=== PATIENT | male | born 1940 | race Caucasian/White ===

== ENCOUNTER → 2024-01-04 12:54 | Outpatient (REF) | payer MEDICARE, BC, SELFPAY | LOC: SDSPAT 12:54 | PROVIDERS: ATTENDING PHYSICIAN Internal Medicine Cardiovascular Disease; FAMILY PHYSICIAN Student in an Organized Health Care Education/Training Program | DX: Z01.818 Encounter for other preprocedural examination (principal); I48.19 Other persistent atrial fibrillation | CPT/HCPCS: 93005 ==

== ENCOUNTER → 2024-01-07 07:09 | Day surgery (SDC) | payer MEDICARE, BC, SELFPAY ==
[2024-01-04 13:05] VITALS: BMI 26.6
[2024-01-07 08:00] VITALS: BMI 24.8
[2024-01-07 08:05] LABS: INR 2.58; PT 27.6 Sec (11.4-14.6)
--- NOTE | 2024-01-07 17:28 | ITS.CL.CARDI ---
Medical Center Representative - Cardioversion
Cardioversion
Procedure Report:
Date of Procedure:01/07/24
Procedure: Cardioversion
Indication: Symptomatic atrial fibrillation
Performing Physician: Angélica Sethi DO [facility]
Anticoagulation: Coumadin. INR today 2.58
Technique: The patient was brought to the holding area. Signed informed consent was obtained. A time out was called and performed. The patient was anesthetized by the anesthesia service. Anticoagulation status was reviewed and appropriate. R2 pads
were placed anteriorly and posteriorly. A 200 J synchronized biphasic shock restored sinus rhythm. There were no complications.
Conclusion: Uncomplicated cardioversion from atrial fibrillation. Diltiazem CD reduced to 120 mg daily. Cardioversion procedure and plan discussed with his usual pt escort, Dr. Lofton.
Recommendation: Routine post cardioversion care. Continue superintendent terminal anticoagulation.
== END | disposition home or self-care (01) ==
LOC: CATH 07:09
PROVIDERS: Internal Medicine Cardiovascular Disease; ATTENDING PHYSICIAN Internal Medicine Cardiovascular Disease; FAMILY PHYSICIAN Student in an Organized Health Care Education/Training Program
DX: I48.19 Other persistent atrial fibrillation (principal); I25.10 Atherosclerotic heart disease of native coronary artery without angina pectoris; Z95.1 Presence of aortocoronary bypass graft; I11.0 Hypertensive heart disease with heart failure; I50.32 Chronic diastolic (congestive) heart failure; E78.5 Hyperlipidemia, unspecified; N40.0 Benign prostatic hyperplasia without lower urinary tract symptoms; K21.9 Gastro-esophageal reflux disease without esophagitis; Z87.891 Personal history of nicotine dependence; Z79.01 Long term (current) use of anticoagulants
CPT/HCPCS: 85610; 92960; 93005

== ENCOUNTER 2024-05-03 15:31 | Inpatient (IN) | payer MEDICARE, BC, SELFPAY ==
[2024-05-03] VITALS (13 sets, daily range): BP systolic 148–182; BP diastolic 80–126; PULSE 77–92; BMI 24.4; BMI 23.5
--- NOTE | 2024-05-03 09:32 | ED.GENMED ---
History of Present Illness
General
Chief Complaint: Male Genito-Urinary Symptoms
Time Seen by Provider: 05/03/24 09:32
History of Present Illness
History of Present Illness:
HPI: Patient presents with gross hematuria started 2 days ago. He is on Coumadin for history of A-fib and is on aspirin for CAD. He also reports rectal bleeding but he has had this in the past. He takes Coumadin 2.5 mg 6 days a week and then have
a dose on the other day. He is in no pain. He states that his INR yesterday was 2.7.
EXAM:
GENERAL: Well appearing in no distress
HEENT: Moist oral mucosa, hard of hearing, hearing aids present
CARDIOVASCULAR: No murmurs, normal heart rate, slightly irregular rhythm with some runs of irregularity, No chest wall tenderness
PULMONARY: No respiratory distress, breath sounds are clear and equal
ABDOMEN: Soft with no peritoneal signs, no tenderness, large ventral wall hernia which is soft, he has very dark brown to black loose stool which is briskly heme positive, there is no gross red blood
NEUROLOGIC: Excellent strength all extremities, no coordination deficits
PSYCHIATRIC: Appropriate mental status, normal insight and judgement
EXTREMITIES: Nontender, no edema, moves all extremities equally
SKIN: No rash, no lesions
TIME OF INITIAL ENCOUNTER: 9:45 AM
NUMBER AND COMPLEXITY OF PROBLEMS ADDRESSED AT THE ENCOUNTER
� Chronic conditions affecting care: Atrial fibrillation on Coumadin, high blood pressure
� Acute Exacerbation and/or Progression of Chronic Illness: This is an acute problem but is had a similar episode in the past
� Differential Diagnosis includes: Bleeding from bladder, upper/lower GI bleed
AMOUNT AND/OR COMPLEXITY OF DATA TO BE REVIEWED AND ANALYZED
� I performed an independent evaluation of and my interpretation is:
EKG: A-fib 76, no acute ST
CT: CTA shows no contrast extravasation however mass (likely clot) is seen in bladder
X-rays:
Laboratory Studies: White count 10.3, hemoglobin 13.1, BUN is not elevated. INR 2.76.
Other:
� Review of other/old records: I reviewed old records. The patient was hospitalized in February 2023 with [facility]. Records also indicate that the patient had an embolization of an actively extravasating arterial branch vessel to the
descending colon in 2014.
� Clinical information was obtained by an independent historian: I spoke to kathyughter at bedside
� Prescriptions/Medications Considered but not given: Considered antibiotics for the possible of UTI; consider Kcentra however the patient's bleeding is relatively controlled currently.
� Further testing considered but not performed:
RISK OF COMPLICATIONS AND/OR MORBIDITY OR MORTALITY OF PATIENT MANAGEMENT
� Social determinants of health affecting care: Lives at home
� Discussion with other providers:
� Escalation of care including admission/observation vs risk of discharge considered: The patient has grossly heme positive very dark brown to black stool however his BUN is not elevated and his hemoglobin is stable. He has been
hypertensive here. Urine is grossly red/slightly cloudy. Urinalysis is positive for nitrates and blood. CTA shows no contrast extravasation. However given patient's advanced age on Coumadin with both hematuria and GI bleed, I recommend he stay
for further observation.
Past History
Past History
ED Past Medical History: Arrthythmia, CAD, Cancer, GERD, HTN, Hypercholesterolemia, Valvular disease and Other (BPH)
ED Past Surgical History: Urological and Other
Social History
Tobacco: Former smoker
Alcohol: None
Drug: None
Personal:
Living: alone
Employment: Employed
Family History
Family History: Other
Phy Exam
Physical Exam
Physical Exam:
See HPI
Course
Orders/Labs/Results
Orders:
Orders
05/03/24 09:48
Complete Blood Count/With Diff Urgent
Comprehensive Metabolic Panel Urgent
Prothrombin Time Urgent
05/03/24 09:54
Pantoprazole [Protonix IV] 40 mg IV NOW STA
05/03/24 09:57
Electrocardiogram (*1) Urgent
Reason for Study: Atrial Fibrillation
EKG- Treatment ONCE
05/03/24 09:58
CT Angio Abd/Pelvis w/wo IV [CT Abd/pelvis Angio W/wo Iv] Urgent
Comment:
Reason For Exam: recurrent rectal bleeding; h/o desc colon emboliza
05/03/24 09:59
Add On- LAB Urgent
Tests Added?: t&s
05/03/24 10:04
Type+Screen Urgent
05/03/24 10:39
Urinalysis Reflex To Culture Urgent
Date Specimen was Collected: 05/03/24
Time Specimen was Collected: 10:36
Urine Microscopic Reflex Cult Urgent
Urine Culture Urgent
LAZARO Source: U
Specimen Description:
Date Specimen was Collected: 05/03/24
Time Specimen was Collected: 10:36
Abnormal Lab Results
05/03/24 05/03/24
09:48 10:39
RBC 4.30 L 10^6/uL
(4.70-6.10)
Hct 38.1 L %
(39.0-52.0)
Absolute Neuts (auto) 9.0 H 10^3/uL
(1.4-6.5)
Absolute Lymphs (auto) 0.7 L 10^3/uL
(1.2-3.4)
Neutrophils % 87.9 H %
(42.2-75.2)
Lymphocytes % 6.8 L %
(20.5-51.1)
PT 29.6 H Sec
(11.4-14.6)
Glucose 141 H mg/dl
(70-99)
Urine Ketones Trace A
(Negative)
Ur Occult Blood Reflex 4+ A
(Negative)
Urine Nitrite (Reflex) Positive A
(Negative)
Leukocyte Esterase Rfl 1+ A
(Negative)
Urine RBC >100 A /HPF
(0-2)
Urine WBC (Reflex) 11-15 A /HPF
(0-5)
Urine Bacteria (Reflex) Moderate A
(Negative)
Urine Albumin (Reflex) 2+ A
(Neg - Trace)
05/03/24 09:48
05/03/24 09:48
Vital Signs
Initial and Last Documented VS:
Initial Vital Signs
Temp Pulse Resp BP Pulse Ox
98.3 F 88 18 173/93 97
05/03/24 08:47 05/03/24 08:47 05/03/24 08:47 05/03/24 08:47 05/03/24 08:47
Last Documented Vital Signs
Temp Pulse Resp BP Pulse Ox
98.3 F 75 18 148/81 97
05/03/24 08:47 05/03/24 13:30 05/03/24 13:30 05/03/24 13:00 05/03/24 13:30
*Critical Care Note
Total Time (30-74mins, 75-104mins- exclusive of procedures): Not Applicable
ED Attending Note
-
Portions of this chart may have been created with voice recognition software.� Occasional wrong word or��sound alike� substitutions may have occurred due to the inherent limitations of voice recognition software.
Discharge Plan
Departure
Patient Disposition: Admit
Date of Disposition: 05/03/24
Time of Disposition: 13:37
Presentation/result/management discussed w/ accepting MD/DO: Hospitalist
Discharge Problem:
Acute GI bleeding, Hematuria
Prescriptions:
No Action
dutasteride 0.5 MG capsule
0.5 mg PO DAILY
ferrous sulfate [FeroSul] 325 MG tablet
650 mg PO DAILY
Fiber Gummies 2 GM tablet,chewable
4 gm PO DAILY
multivitamin with folic acid [Tab-A-Roverto] 1 TABLET tablet
1 tab PO DAILY
pantoprazole 40 MG tablet,delayed release (DR/EC)
40 mg PO DAILY Qty: 30 0RF
warfarin 2.5 mg Tablet
2.5 mg PO SUMOTUWEFRSA
warfarin 2.5 mg Tablet
1.25 mg PO TH
losartan 100 mg Tablet
100 mg PO DAILY
ezetimibe 10 mg Tablet
10 mg PO DAILY
diltiazem HCl 120 mg capsule,extended release 24hr
120 mg PO DAILY Qty: 90 3RF
Referrals:
Nora Mendez MD [Family Provider] -
Interventions
Interventions:
*Risk Screen - Suicide Last Done: 05/03/24 08:47
*General Assessment Last Done: 05/03/24 08:47
*Neglect/Abuse Screening Last Done: 05/03/24 08:47
ED- Fall Risk Assessment Last Done: 05/03/24 09:40
*ED COVID-19 Vaccine History Last Done: 05/03/24 08:47
ED-Male Genitourinary Assessment Last Done: 05/03/24 09:40
Discharge Date and Time
Print Language: TELUGU
[2024-05-03] MEDS: PROTONIX IV 40 MG IV ×2 (09:58→20:46)
[2024-05-03 10:10] LABS: INR 2.76; PT 29.6 Sec (11.4-14.6)
[2024-05-03 10:12] LABS: % Basophils 0.5 % (0-2); % Eosinophils 0.5 % (0-6); % Immature Granulocytes 0.4 % (0-0.5); % Lymphocytes 6.8 % (20.5-51.1); % Monocytes 3.9 % (1.7-9.3); % Neutrophils 87.9 % (42.2-75.2); Absolute Basophils 0.1 10^3/uL (0-0.2); Absolute Eosinophils 0.1 10^3/uL (0-0.7); Absolute Lymphocytes 0.7 10^3/uL (1.2-3.4); Absolute Monocytes 0.4 10^3/uL (0.1-0.6); Hematocrit 38.1 % (39.0-52.0); Hemoglobin 13.1 g/dL (13.0-18.0); Mean Corp Hgb Conc. 34.4 g/dL (33.0-37.0); Mean Corpuscular Hgb 30.5 pg (27.0-31.0); Mean Corpuscular Volume 88.6 fL (80.0-94.0); Mean Platelet Volume 10.1 fL (7.4-10.4); Nucleated Red Blood Cells % 0 % (-); Platelet Count 346 10^3/uL (130-400); White Blood Cell Count 10.3 10^3/uL (4.8-10.8)
[2024-05-03 10:19] LABS: ALT (SGPT) 18 U/L (0-50); AST (SGOT) 29 U/L (17-59); Albumin 4.3 g/dl (3.5-5.0); Alkaline Phosphatase 109 U/L (38-126); Blood Urea Nitrogen 11 mg/dl (9-20); Calcium 9.6 mg/dl (8.4-10.2); Carbon Dioxide 27 mmol/L (22-30); Chloride 104 mmol/L (98-107); Estimated Creatinine Clearance 61 ml/min; Glucose 141 mg/dl (70-99); Sodium 137 mmol/L (135-145); Total Protein 7.6 g/dl (6.3-8.2); eGFR > 60.00
[2024-05-03 10:34] LABS: Potassium 4.1 mmol/L (3.5-5.1)
[2024-05-03 11:09] LABS: Urine Albumin 2+ (Neg - Trace); Urine Bilirubin Negative (Negative); Urine Character Slightly Cloudy (Clear); Urine Color Red; Urine Glucose Negative (Negative); Urine Ketone Trace (Negative); Urine Leukocyte 1+ (Negative); Urine Nitrite Positive (Negative); Urine Occult Blood 4+ (Negative); Urine Specific Gravity 1.005 (<1.030); Urine Urobilinogen Negative (Neg - 1+)
[2024-05-03 11:39] LABS: Urine Red Blood Cell >100 /HPF (0-2)
[2024-05-03 11:40] LABS: Urine Bacteria Moderate (Negative)
--- NOTE | 2024-05-03 14:33 | HPS.HSE ---
Family Physician
-
Family Physician: Nora Mendez MD
Chief Complaint
-
melena
bloody urine
History of Present Illness
83-year-old with past medical history for A-fib, coronary artery disease, GERD, hypertension, hyperlipidemia, BPH presented to us with gross hematuria started 2 days ago and also rectal bleeding since last night. He is on Coumadin for past 7 years.
Patient denied any abdominal pain, nausea, vomiting, diarrhea. Patient denied any headache, dizziness, syncopal episode. Patient denied chest pain or short of breath.
Stool positive in ER. CT with impression of irregularly-shaped increased attenuation masslike structure within the urinary bladder measuring up to 5 cm in diameter. As this is new as compared with the prior examination and shows no definitive
enhancement, most likely related to blood clot. Bladder neoplasm is considered less likely.
Patient received Protonix in ER. Admitting for further management
Medical History
Past Medical History
Past Medical History: Reports Other
Additional Past Medical History:
1. Coronary artery disease status post JOHANSEN to distal LAD 2014 with
residual OM3 disease, medically treated.
2. 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
3. Hypertension.
4. Hyperlipidemia.
5. HFpEF.
6. Iron deficiency anemia.
7. BPH.
8. Gastroesophageal reflux disease.
9. Lower gastrointestinal bleed status post mesenteric coil
embolization.
Past Surgical History: Reports Other
Additional Past Surgical History:
Lower GI bleed, TURP, mesenteric
coil embolization CABG, JOHANSEN to LAD with mitral valve repair and
maze 2014, cardioversion x1, Achilles tendon rupture repair.
Social History
Tobacco: Non-smoker
Alcohol: None
Drug: None
Living: With Family
Family History
Family History: Not pertinent
Allergies / Home Medications
Allergies reflects when Allergies were last updated in [facility] [employer] [facility].
Home Medications with original date entered in [employer] [facility]
Allergy/Medication List:
Allergies
Allergy/AdvReac Type Severity Reaction Status Date / Time
amoxicillin Allergy Swelling Verified 05/03/24 08:47
pollen extracts Allergy congestion Verified 05/03/24 08:47
Home Medications
dutasteride 0.5 mg capsule 0.5 mg PO DAILY BPH 03/18/17
ferrous sulfate 325 mg (65 mg iron) tablet (FeroSul) 650 mg PO DAILY Supplement 10/25/19
inulin 2 gram chewable tablet (Fiber Gummies) 4 gm PO DAILY Diabetes 10/25/19
pantoprazole 40 mg tablet,delayed release 40 mg PO DAILY #30 tabs 03/24/20
warfarin 2.5 mg tablet 2.5 mg PO SUMOTUTHFRSA@1700 Blood Clot Prevention/Tx 03/01/23
ezetimibe 10 mg tablet 10 mg PO DAILY 12/30/23
losartan 100 mg tablet 100 mg PO DAILY 12/30/23
warfarin 2.5 mg tablet 1.25 mg PO WE@1700 12/30/23
ipratropium bromide 21 mcg (0.03 %) nasal spray 2 spray intranasal DAILYPRN PRN nasal drip 05/03/24
therapeutic multivitamin 2 tab PO DAILY 05/03/24
Review of Systems
-
Constitutional: Reports No Symptoms
EENT: Reports No Symptoms
Respiratory: Reports No Symptoms
Cardiac: Reports No Symptoms
Abdomen/GI: Reports Bloody Stools and Black Stools
: Reports Other (Hematuria)
Musculoskeletal: Reports No Symptoms
Skin: Reports No Symptoms
Neurological: Reports No Symptoms
Endocrine: Reports No Symptoms
Hematologic/Lymphatic: Reports No Symptoms
Psych: Reports No Symptoms
Physical Exam
Vital Signs
Vital Signs
Temp Pulse Resp BP Pulse Ox
98.3 F 75 18 148/81 97
05/03/24 08:47 05/03/24 13:30 05/03/24 13:30 05/03/24 13:00 05/03/24 13:30
Physical Exam
General: Well Developed, Well Nourished and No Apparent Distress
HEENT: NormoCephalic, Moist mucous membranes and Atraumatic
Respiratory: Clear
Cardiac: S1/S2 and Regular Rhythm; No Murmur or Rub
GI: Soft, Non Tender, Non Distended and Normal Bowel Sounds; No Organomegaly
Rectal: Deferred by Provider
Musculoskeletal: No Clubbing, No Cyanosis and No Edema
Skin: No Rash
Neuro: AO x 3 and Nonfocal/grossly intact
Psych: Calm
Laboratory Results
-
05/03/24 09:48
05/03/24 09:48
Laboratory Results
PT 29.6 Sec (11.4-14.6) H 05/03/24 09:48
INR 2.76 05/03/24 09:48
Total Bilirubin 1.0 mg/dl (0.2-1.3) 05/03/24 09:48
AST 29 U/L (17-59) 05/03/24 09:48
ALT 18 U/L (0-50) 05/03/24 09:48
Alkaline Phosphatase 109 U/L (38-126) 05/03/24 09:48
Data Reviewed
-
CT Scan: Report Reviewed by me
Lab Data: Labs Reviewed by me
Impression/Plan
-
# Hematuria /urinary tract infection
-Urine with blood
-CT o active gastrointestinal hemorrhage is identified. Irregularly-shaped increased attenuation masslike structure within the urinary bladder measuring up to 5 cm in diameter. As this is new as compared with the prior examination and shows no
definitive enhancement, most likely related to blood clot. Bladder neoplasm is considered less likely. Advanced aortic atherosclerotic changes as seen prior. 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 Extensive colonic diverticulosis
without diverticulitis. Cholelithiasis.
-iv ceftriaxone continued
-urine culture pending
-urology consulted
# Melena/GI bleed
-#hxt of Lower gastrointestinal bleed status post mesenteric coil embolization.
-Heme positive stool
-Hemoglobin 13.1
-Clear liquid diet
-Trend hemoglobin
-IV PPI
-GI consult
# hxt of CAD
#A fib likely permanent
-Hold Coumadin
-INR therapeutic
-EKg with atrial fib
# BPH
-dutasteride continued
# Hyperlipidemia
-Zetia continued
# Iron deficiency anemia
-ferrous sulfate continued
#HTN
-continue [employer] losartan with hold parameters
DVT PPx - INR currently therapeutic
# CODE STATUS
-Full code
--- NOTE | 2024-05-03 15:11 | CON.GI ---
Consultation
-
Date/Time Consultation Requested: 05/03/24
Date/Time Consultation Performed: 05/03/24 @ 15:30
Requesting Provider: Dr. Glover
Performing Provider: RIGOBERTO Villegas; Dr. Jaja Conklin
Reason for Consultation: melena, heme +
Medical History
Chief Complaint / HPI
Chief Complaint: melena, bloody urine
History of Present Illness:
The patient is an 83-year-old male with a past medical history significant for atrial fibrillation on Coumadin, CAD with prior stenting and CABG in 2014, mitral valve repair 2014, GERD, hypertension, hyperlipidemia, BPH, iron deficiency anemia on
oral iron, history of GI bleed status post mesenteric coil embolization, suspected diverticular bleeding (Cscope x2 in 2019 with negative CTA), chronic CHF, who presented to the emergency room with complaints of melena and bloody urine. We are
being asked to evaluate for concern for GI bleed with chronic anticoagulation on Coumadin. The patient reports that since Wednesday he had been having clots and a pink tinged urine. He notes having hematuria in the past and it appears he has had
several urologic interventions in the past. He reports that last night he awoke in the middle of the night to have a bowel movement and noticed it was black stool. He describes it as pasty, the consistency of the oatmeal. He notes that he does
have blood mixed in as well although he is not sure if this is from his urine given he urinates at the same time. He does take oral iron but notes that his stool was previously brown prior to today. He does not suffer from constipation nor does he
have diarrhea at baseline. He does take pantoprazole 40 mg daily and is compliant with this. He reports he had a significant mount of weight loss over the fall but he has steadily been gaining some weight. He had seen Dr. Palomo in the office in
July due to his weight loss and abdominal fullness and did have an endoscopy in August which showed no concerning findings. Biopsies of the esophagus did reveal Meneses's esophagus and he was advised to continue on PPI therapy. He otherwise
denies any nausea, vomiting, heartburn, abdominal pain, loss of appetite, constipation, early satiety, chest pain, shortness of breath, fevers, or chills. He denies any new medications. He denies any recent antibiotics or steroids. He denies any
family history of colon cancer or other GI cancers or disorders. His last dose of warfarin was last night with 2.5 mg. He denies use of NSAIDs. Upon review of previous records he had been hospitalized in 2019 at that time with hematochezia and
underwent colonoscopy on 03/11 in which a 10 mm polyp was removed. There was also blood seen in the sigmoid colon and suspect to be diverticular bleeding. He had a recurrent admission shortly after that and underwent repeat colonoscopy on 03/22/2020
in which she had blood throughout his entire colon. He had a CTA done at that time which was negative for active bleeding. He was admitted again last year again with concern for bleeding suspected again to possibly be diverticular. It was only
small amount and his hemoglobin remained stable, and he was discharged home. Upon ER evaluation today, routine labs in the ER showed a WBC of 10.3, hemoglobin 13.1, platelets 346,000, INR 2.76, with a normal CMP. He is pending urology evaluation
for possible CBI. CTA of the abdomen and pelvis was obtained which was negative for acute GI bleed, but did show extensive diverticular disease, and an irregularly shaped increased attenuation masslike structure within the urinary bladder measuring
up to 5 cm, with other nonurgent findings as noted below. He was started on antibiotics for concern for possible UTI given his urinary frequency. Urine culture is pending. We are following for possible need for EGD.
Past Medical History
Past Medical History: Arrhythmias (A-fib on Coumadin), CAD (Status post CABG), CHF, GERD, HTN, Hypercholesterolemia and Other (BPH, iron deficiency anemia on chronic oral iron, history of GI bleed suspect to be diverticular status post coil
embolization, recurrent hematuria requiring cystoscopy)
Past Surgical History: Cardiac (CABG, mitral valve repair), Urological (TURP) and Other (mesenteric coil embolization)
Social History
Tobacco: Non-Smoker
Alcohol: None
Drug: None
Living: With Family
Family History
Family History: Reviewed & Not Pertinent
Allergies / Home Medications
Allergy/AdvReac Type Severity Reaction Status Date / Time
amoxicillin Allergy Swelling Verified 05/03/24 08:47
pollen extracts Allergy congestion Verified 05/03/24 08:47
�Medication �Instructions �Recorded
dutasteride 0.5 mg capsule 0.5 mg PO DAILY BPH 03/18/17
ferrous sulfate 325 mg (65 mg 650 mg PO DAILY Supplement 10/25/19
iron) tablet (FeroSul)
inulin 2 gram chewable tablet 4 gm PO DAILY Diabetes 10/25/19
(Fiber Gummies)
pantoprazole 40 mg tablet,delayed 40 mg PO DAILY #30 tabs 03/24/20
release
warfarin 2.5 mg tablet 2.5 mg PO SUMOTUTHFRSA@1700 Blood 03/01/23
Clot Prevention/Tx
ezetimibe 10 mg tablet 10 mg PO DAILY 12/30/23
losartan 100 mg tablet 100 mg PO DAILY 12/30/23
warfarin 2.5 mg tablet 1.25 mg PO WE@1700 12/30/23
ipratropium bromide 21 mcg (0.03 2 spray intranasal DAILYPRN PRN 05/03/24
%) nasal spray nasal drip
therapeutic multivitamin 2 tab PO DAILY 05/03/24
Review of Systems
-
History Source: Patient
Constitutional: Reports No Symptoms
EENT: Reports No Symptoms
Respiratory: Reports No Symptoms
Cardiac: Reports No Symptoms
Abdomen/GI: Reports Black Stools
: Reports Frequency and Bleeding
Musculoskeletal: Reports No Symptoms
Skin: Reports No Symptoms
Neurological: Reports No Symptoms
Vital Signs
Temp Pulse Resp BP Pulse Ox
98.3 F 75 18 148/81 97
05/03/24 08:47 05/03/24 13:30 05/03/24 13:30 05/03/24 13:00 05/03/24 13:30
Physical Exam
Exam
General: Well Developed, No Apparent Distress, Comfortable and Other (elderly appearing male )
HEENT: Normocephalic, Anicteric and Atraumatic
Respiratory: Clear
Cardiac: S1/S2 and Regular Rhythm
GI: Soft, Non Distended, Normal Bowel Sounds and Tender (mildly distended but soft)
Rectal: Hem Positive (per ER records)
Musculoskeletal: No Edema
Skin: Warm and Dry
Neuro: Awake, Alert and Oriented
Psych: Calm
Results
WBC 10.3 10^3/uL (4.8-10.8) 05/03/24 09:48
Hgb 13.1 g/dL (13.0-18.0) 05/03/24 09:48
Hct 38.1 % (39.0-52.0) L 05/03/24 09:48
MCV 88.6 fL (80.0-94.0) 05/03/24 09:48
Plt Count 346 10^3/uL (130-400) 05/03/24 09:48
Absolute Neuts (auto) 9.0 10^3/uL (1.4-6.5) H 05/03/24 09:48
PT 29.6 Sec (11.4-14.6) H 05/03/24 09:48
INR 2.76 05/03/24 09:48
Sodium 137 mmol/L (135-145) 05/03/24 09:48
Potassium 4.1 mmol/L (3.5-5.1) 05/03/24 09:48
Chloride 104 mmol/L (98-107) 05/03/24 09:48
Carbon Dioxide 27 mmol/L (22-30) 05/03/24 09:48
BUN 11 mg/dl (9-20) 05/03/24 09:48
Creatinine 0.9 mg/dL (0.7-1.3) 05/03/24 09:48
Calcium 9.6 mg/dl (8.4-10.2) 05/03/24 09:48
Total Bilirubin 1.0 mg/dl (0.2-1.3) 05/03/24 09:48
AST 29 U/L (17-59) 05/03/24 09:48
ALT 18 U/L (0-50) 05/03/24 09:48
Alkaline Phosphatase 109 U/L (38-126) 05/03/24 09:48
Diagnostic Image Results:
05/03/24 CTA abdomen and pelvis with and without contrast:
1. No active gastrointestinal hemorrhage is identified.
2. Irregularly-shaped increased attenuation masslike structure within the urinary bladder measuring up to 5 cm in diameter. As this is new as compared with the prior examination and shows no definitive enhancement, most likely related to blood
clot. Bladder neoplasm is considered less likely.
3. Advanced aortic atherosclerotic changes
4. Extensive colonic diverticulosis without diverticulitis.
5. Cholelithiasis.
Prior GI Procedures:
08/26/2023 EGD: Normal esophagus, Z-line irregular, biopsies consistent with Meneses's esophagus. Widely patent nonobstructing and mild Schatzki ring. 3 cm hiatal hernia. A few gastric polyps biopsied consistent with fundic gland polyps.
Granular gastric mucosa with unrevealing biopsies. Normal examined duodenum, negative for celiac.
Colonoscopy: March 2020, Dr. Castillo, adequate prep for purpose of bleeding, enlarged prostate on exam, left-sided diverticulosis with blood throughout the entire colon but more red and fresh in the left colon. No source found after 2 L of lavage.
Colonoscopy 03/2020: 10 mm pedunculated polyp, descending colon clip placed, diverticulosis
2014, status post CTA with embolization of the descending colon artery
Colonoscopy in 2013: diverticulosis, external hemorrhoids
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
that biopsy report.
Colonoscopy in 2011: diverticulosis, three polyps removed (4-5 mm), per biopsy report: adenomatous and benign serrated polyp with features suspicious but not diagnostic of sessile serrated adenoma
Assessment / Plan
-
The patient is an 83-year-old male with a past medical history significant for atrial fibrillation on Coumadin, CAD with prior stenting and CABG in 2014, mitral valve repair 2014, GERD, hypertension, hyperlipidemia, BPH, iron deficiency anemia on
oral iron, history of GI bleed status post mesenteric coil embolization, suspected diverticular bleeding (Cscope x2 in 2019 with negative CTA), chronic CHF, hematuria with cystoscopy and TURBPT with nodular hyperplasia of bladder lesion (2016,
2019), who presented to the emergency room with complaints of melena and bloody urine. We are being asked to evaluate for concern for GI bleed with chronic anticoagulation on Coumadin. He has history of GI bleeding, previously suspected to be
diverticular given hematochezia although source unable to be identified in the past in 2019. Had recurrent bleeding in 2022 but this resolved. He had an EGD over the fall with Dr. Palomo due to weight loss and abdominal fullness but no concerning
findings were seen. He is on chronic PPI for Meneses's esophagus. He is on chronic warfarin for history of A-fib it appears he has had intermittent urological bleeding, in the past requiring cystoscopy with TURBT d/t recurrent nodular hyperplasia
of bladder lesion in 2016 and again in October 2019. Currently he is reporting melena although with a stable hemoglobin of 13.1. He has no upper GI symptoms. His INR is 2.76. CTA did not show any active GI bleeding but did show a 5 cm bladder
mass that is thought to be secondary to a blood clot. He has been having pink/punch tinged urine along with clots as well. His BUN is normal at 11. He denies use of NSAIDs. His last dose of warfarin was last evening with 2.5 mg. He was started
on antibiotics for possible UTI.
Problem list:
-Melena, no active GI bleed on CTA
-Hematuria with clots
-CTA showing a 5 cm bladder mass, possibly clot
-History of GI bleed with coil embolization, suspected diverticular with extensive diverticulosis on prior imaging and colonoscopy in 2019
-Meneses's esophagus on chronic PPI
-History of recurrent hematuria s/p cystoscopy and TURBT with nodular hyperplasia of bladder
-History of A-fib on chronic anticoagulation with Coumadin
-chronic SHAKEEL on oral iron
-abnormal UA, concern for UTI
Other pertinent medical history:
-CAD with history of CABG and mitral valve repair in 2014
-GERD
-HTN
-HLD
-BPH
Recommendations:
-Etiology of melena possibly due to upper GI blood loss such as AVMs versus peptic ulcer versus other. Also consider higher up diverticular bleeding although would expect maroon stool in this case. He is also on oral iron which can affect stool
color.
-----CTA is negative for active GI bleed but did show 5cm bladder mass, possibly clot.
-Given his stable hemoglobin and hemodynamic stability, would continue to monitor stool output and for gross signs of bleeding
-Consider eventual EGD pending his clinical course, but no scope for now given his Warfarin and elevated INR. Discussed with Dr. Conklin
-Trend INR. Coumadin on hold
-Will place on twice daily PPI for now
-Okay for clear liquid diet
-Trend H&H
-I advised him if he has a bowel movement to allow the nurses to evaluate his stool color
-Pending urologic evaluation, per hospitalist for placement of CBI
-To consider discussion with cardiology regarding his anticoagulation and/or alternatives going forward given his recurrent urologic and GI bleeding.
-Management for UTI per primary team
-Further management pending above
Data Reviewed
-
CT Scan: Report Reviewed by me and Discussed with Physician
Old Records: Reviewed
-
-
Thank you for consultation and allowing me to participate in the patient's care. Please call the regional transportation manager GI physician during the after hours with any questions or concerns.
--- NOTE | 2024-05-03 15:30 | W.PN.UPDATE ---
Update Note
Progress Note Update
I saw and examined the patient.
The BUSINESS CONTROL MANAGER or PA's note was reviewed and I agree with the note.
Comment: This note is in addition to BUSINESS CONTROL MANAGER/PA note
83-year-old male with past medical history of A-fib, CAD, BPH, hyperlipidemia, iron deficiency anemia, hypertension, history of GI bleed came to the hospital with hematuria and GI bleed. Likely will need EGD. consult GI and urology. Clears for
now. Hold Coumadin. Denies any NSAID use. Follow-up INR. Will need Timmons with CBI. Follow urine culture. start antibiotic
General: Well Developed, Well Nourished and No Apparent Distress
HEENT: NormoCephalic, Moist mucous membranes and Atraumatic
Respiratory: Clear
Cardiac: S1/S2 and Regular Rhythm; No Murmur or Rub
GI: Soft, Non Tender, Non Distended and Normal Bowel Sounds; No Organomegaly
Rectal: Deferred by Provider
Musculoskeletal: No Clubbing, No Cyanosis and No Edema
Skin: No Rash
Neuro: AO x 3 and Nonfocal/grossly intact
Psych: Calm
I spent a total of 76 minutes with the patient or on the floor. More than 50% of this time involved counseling and coordination of care.
[2024-05-03] MEDS: STERILE WATER FOR INJECTION 10 ML IV (15:34)
[2024-05-03] MEDS: ROCEPHIN 1000 MG IV (15:34)
[2024-05-03 17:11] LABS: Hemoglobin 13.3 g/dL (13.0-18.0)
--- NOTE | 2024-05-03 17:42 | PTCARENOTE ---
pt presents from ED via stretcher. pt is AAO*3, Vss, room air. pt denies any pain, dizziness, N/V. pt is independent. on clears. pt had a bloody BMs with clots. GI notified. pt c/o difficulty urinating. pt oriented to the room. call stephen within the
reach. plan of care ongoing.
--- NOTE | 2024-05-03 19:37 | PTCARENOTE ---
pt with difficulty urinating. As per Urology, inserted 3 way vivar, Hand irrigated 300 cc with clots. CBI started.
[2024-05-03] MEDS: NSS (PRESERVATIVE FREE) 10 ML IV (20:47)
[2024-05-04] VITALS (9 sets, daily range): BP systolic 111–143; BP diastolic 71–89; PULSE 86–102; O2SAT 97; BMI 23.5
[2024-05-04 01:28] LABS: Hematocrit 35.5 % (39.0-52.0); Hemoglobin 12.7 g/dL (13.0-18.0)
[2024-05-04] MEDS: PROTONIX IV 40 MG IV (07:31)
[2024-05-04] MEDS: ZETIA 10 MG PO (07:32)
[2024-05-04] MEDS: COZAAR 100 MG PO (07:32)
[2024-05-04] MEDS: PROSCAR 5 MG PO (07:32)
[2024-05-04] MEDS: FEOSOL 650 MG PO (07:33)
[2024-05-04] MEDS: NSS (PRESERVATIVE FREE) 10 ML IV (07:36)
[2024-05-04 08:00] LABS: Red Blood Cell Count 4.11 10^6/uL (4.70-6.10); White Blood Cell Count 11.7 10^3/uL (4.8-10.8)
[2024-05-04 08:01] LABS: Hematocrit 36.1 % (39.0-52.0); Hemoglobin 12.5 g/dL (13.0-18.0); Mean Corp Hgb Conc. 34.6 g/dL (33.0-37.0); Mean Corpuscular Hgb 30.4 pg (27.0-31.0); Mean Corpuscular Volume 87.8 fL (80.0-94.0); Mean Platelet Volume 9.9 fL (7.4-10.4); Platelet Count 333 10^3/uL (130-400); Red Cell Dist. Width 13.1 % (11.5-14.5)
[2024-05-04 08:15] LABS: INR 2.51; PT 27.4 Sec (11.4-14.6)
[2024-05-04 08:32] LABS: Blood Urea Nitrogen 12 mg/dl (9-20); Calcium 9.4 mg/dl (8.4-10.2); Carbon Dioxide 25 mmol/L (22-30); Chloride 104 mmol/L (98-107); Estimated Creatinine Clearance 55 ml/min; Glucose 129 mg/dl (70-99); Potassium 3.9 mmol/L (3.5-5.1); Sodium 136 mmol/L (135-145); eGFR > 60.00
--- NOTE | 2024-05-04 09:15 | W.PN.URO.CBU ---
Today's Communication / Plan
-
rmov folet=y eplace if no void or dousetnion or pain
Assessment / Plan
-
hematuria fron[m anticogulabts no bladder mass on previos ct scan but bph will remove vivar as i hand irrigated and thre wa no clots However pt could hav eorganized clot and if cannot void may shyla scysto under anestheis to evacuate clot
Diagnosis
-
Date of Service: May 04, 2024
-
Patient Diagnosis:hematuria and gi bleed on warfarin Hematuria x 2 days coul not void lst pm and vivar placd and clots irigated Clear today H/p\\o bph on dutasteride
Post Op Day:
Subjective
-
no hematuria but gi bled continued
Objective
-
Vital Signs
Temp Pulse Resp BP Pulse Ox
97.8 F 88 18 137/89 95
05/04/24 08:31 05/04/24 08:31 05/04/24 08:31 05/04/24 07:32 05/04/24 08:31
Intake and Output
05/03/24 05/04/24 05/05/24
06:59 06:59 06:59
Intake Total 480 / 480
Output Total 1750 / 1750
Balance -1270 / -1270
Intake:
Oral fluids 480 / 480
Output:
Urine, Vivar 550 / 550
True Urine Output from CBI 1200 / 1200
Laboratory Results
05/04/24 07:50
Review of Systems
-
: Difficulty Voiding
Physical Exam
-
General - well developed, well nourished, no acute distress
Chest - clear bilaterally
Abdomen - soft, non-tender, positive bowel sounds, no CVAT, no incisional pain or distention
Genitalia - normal
Rectal - normal
Skin - warm & dry with no rash
Neuro - AOx3, no motor deficits
Extremities - no clubbing, no cyanosis, no edema
Incision - clean, dry
Dressing - clean, dry, intact
Care Review
Data Reviewed
Discussed with: Hospitalist and Nursing
CT Scan: Image Pers Reviewed
--- NOTE | 2024-05-04 11:54 | W.PN.HOSP.TC ---
Today's Communication/Plan
-
Monitor vital signs see plan
Vivar per urology
Continue to monitor bowel movements
Monitor hemoglobin
Continue PPI
Continue to hold Coumadin
Discussed with daughter at bedside
Assessment / Plan
Assessment / Plan
General: Well Developed, Well Nourished and No Apparent Distress
HEENT: NormoCephalic, Moist mucous membranes and Atraumatic
Respiratory: Clear
Cardiac: S1/S2 and Regular Rhythm; No Murmur or Rub
GI: Soft, Non Tender, Non Distended and Normal Bowel Sounds
Musculoskeletal: No Edema
Neuro: AO x 3 and Nonfocal/grossly intact
Psych: Calm
Hematuria /urinary tract infection
s/p vivar with CBI; urine this morning clear; CBI stopped. Plan for catheter removal per urology
-CT without active gastrointestinal hemorrhage is identified. Irregularly-shaped increased attenuation masslike structure within the urinary bladder measuring up to 5 cm in diameter. As this is new as compared with the prior examination and shows
no definitive enhancement, most likely related to blood clot. Bladder neoplasm is considered less likely. Advanced aortic atherosclerotic changes as seen prior. 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 Extensive colonic
diverticulosis without diverticulitis. Cholelithiasis.
-iv ceftriaxone continued
-urine culture pending
-urology following
# Melena/GI bleed
-#hxt of Lower gastrointestinal bleed status post mesenteric coil embolization.
-Heme positive stool
continues to have dark stool
-Clear liquid diet
-Trend hemoglobin
-IV PPI
-GI following
# hxt of CAD
#A fib likely permanent
-Hold Coumadin
-INR therapeutic
-EKg with atrial fib
has gotten cardioversion in past
# BPH
-dutasteride continued
# Hyperlipidemia
-Zetia continued
# Iron deficiency anemia
-ferrous sulfate continued
#HTN
-continue CONTROL PANEL TESTER losartan with hold parameters
DVT PPx - INR currently therapeutic
# CODE STATUS
-Full code
I spent a total of 51 minutes with the patient or on the floor. More than 50% of this time involved counseling and coordination of care.
Anticipated Discharge: 24 - 48 hours
Subjective/Interval History
-
Date of Service: May 04, 2024
denies pain
Objective Data
-
Labs:
Laboratory Results
05/04/24 05/04/24 05/04/24
00:53 07:50 16:00
WBC 11.7 H
Hgb 12.7 L 12.5 L Pending
Hct 35.5 L 36.1 L Pending
Plt Count 333
PT 27.4 H
INR 2.51
Sodium 136
Potassium 3.9
Chloride 104
Carbon Dioxide 25
BUN 12
Creatinine 1.0
Glucose 129 H
Calcium 9.4
05/04/24
16:53
WBC
Hgb Pending
Hct Pending
Plt Count
PT
INR
Sodium
Potassium
Chloride
Carbon Dioxide
BUN
Creatinine
Glucose
Calcium
Vital Signs:
Vital Signs
Temp Pulse Resp BP Pulse Ox
97.4 F 95 16 134/77 98
05/04/24 11:04 05/04/24 11:04 05/04/24 11:04 05/04/24 11:04 05/04/24 11:04
I&O
05/03/24 05/04/24 05/05/24
06:59 06:59 06:59
Intake Total 480 / 480
Output Total 1750 / 1750
Balance -1270 / -1270
--- NOTE | 2024-05-04 12:41 | W.PN.GI.CBS2 ---
Today's Communication / Plan
-
Hemoglobin stable. GI will sign off, outpatient f/u
Assessment / Plan
-
The patient is an 83-year-old male with a past medical history significant for atrial fibrillation on Coumadin, CAD with prior stenting and CABG in 2014, mitral valve repair 2014, GERD, hypertension, hyperlipidemia, BPH, iron deficiency anemia on
oral iron, history of GI bleed status post mesenteric coil embolization, suspected diverticular bleeding (Cscope x2 in 2019 with negative CTA), chronic CHF, hematuria with cystoscopy and TURBPT with nodular hyperplasia of bladder lesion (2016,
2019), who presented to the emergency room with complaints of melena and bloody urine. We are being asked to evaluate for concern for GI bleed with chronic anticoagulation on Coumadin. He has history of GI bleeding, previously suspected to be
diverticular given hematochezia although source unable to be identified in the past in 2019. Had recurrent bleeding in 2022 but this resolved. He had an EGD over the fall with Dr. Palomo due to weight loss and abdominal fullness but no concerning
findings were seen. He is on chronic PPI for Meneses's esophagus. He is on chronic warfarin for history of A-fib it appears he has had intermittent urological bleeding, in the past requiring cystoscopy with TURBT d/t recurrent nodular hyperplasia
of bladder lesion in 2016 and again in October 2019. Currently he is reporting melena although with a stable hemoglobin of 13.1. He has no upper GI symptoms. His INR is 2.76. CTA did not show any active GI bleeding but did show a 5 cm bladder
mass that is thought to be secondary to a blood clot. He has been having pink/punch tinged urine along with clots as well. His BUN is normal at 11. He denies use of NSAIDs. His last dose of warfarin was 05/02. He was started on antibiotics for
possible UTI.
Problem list:
-Melena, no active GI bleed on CTA --> more likely hematochezia
-Hematuria with clots
-CTA showing a 5 cm bladder mass, possibly clot
-History of GI bleed with coil embolization, suspected diverticular with extensive diverticulosis on prior imaging and colonoscopy in 2019
-Meneses's esophagus on chronic PPI
-History of recurrent hematuria s/p cystoscopy and TURBT with nodular hyperplasia of bladder
-History of A-fib on chronic anticoagulation with Coumadin
-chronic SHAKEEL on oral iron
-abnormal UA, concern for UTI
Other pertinent medical history:
-CAD with history of CABG and mitral valve repair in 2014
-GERD
-HTN
-HLD
-BPH
Recommendations:
-recommend once daily pantoprazole
-hemoglobin is stable, BUN WNL
-recent EGD performed by Dr. Palomo
-recommend outpatient follow-up with GI
-if active GI bleeding/hemodynamically unstable GI bleeding, please obtain CTA and notify GI
-will sign off-- please have patient follow-up with Dr. Palomo as an outpatient
Subjective
Subjective
Date of Service: May 04, 2024
Patient seen in follow-up this morning. He had a bowel movement that was blood tinged. His hemoglobin remains stable. He has no signs of active GI bleeding. It has been documented that he is having melena, described as 'bright red.' This is not
melena.
Objective
Data Reviewed
Laboratory Data:
Laboratory Results
05/04/24 07:50
Laboratory Results
PT 27.4 Sec (11.4-14.6) H 05/04/24 07:50
INR 2.51 05/04/24 07:50
Total Bilirubin 1.0 mg/dl (0.2-1.3) 05/03/24 09:48
AST 29 U/L (17-59) 05/03/24 09:48
ALT 18 U/L (0-50) 05/03/24 09:48
Alkaline Phosphatase 109 U/L (38-126) 05/03/24 09:48
Vital Signs and I&O:
Vital Signs
Temp Pulse Resp BP Pulse Ox
97.4 F 95 16 134/77 98
05/04/24 11:04 05/04/24 11:04 05/04/24 11:04 05/04/24 11:04 05/04/24 11:04
I&O
05/03/24 05/04/24 05/05/24
06:59 06:59 06:59
Intake Total 480 / 480
Output Total 1750 / 1750
Balance -1270 / -1270
Physical Exam
Physical Exam
HEENT: Anicteric and Moist mucous membranes
GI: Soft, Non Distended, Non Tender and Normal Bowel Sounds
[2024-05-04] MEDS: ROCEPHIN 1000 MG IV (15:14)
[2024-05-04] MEDS: STERILE WATER FOR INJECTION 10 ML IV (15:14)
[2024-05-04 16:17] LABS: Hematocrit 36.7 % (39.0-52.0); Hemoglobin 12.9 g/dL (13.0-18.0)
--- NOTE | 2024-05-04 16:36 | CM ---
Patient seen bedside to complete IA with daughter also in attendance.
Santiago lives alone in a 2 story home his dog, a hound, who he walks regularly.
He is (I) amb and adl's, drives, and has no needs at this time.
PCP: Dr Mendez
Pharmacy: [facility]
Plan: home with no needs, family will transport.
[2024-05-05 03:47] VITALS: BP 130/74
[2024-05-05 05:05] LABS: Hematocrit 33.5 % (39.0-52.0); Hemoglobin 11.8 g/dL (13.0-18.0); Mean Corp Hgb Conc. 35.2 g/dL (33.0-37.0); Mean Corpuscular Hgb 30.6 pg (27.0-31.0); Mean Corpuscular Volume 86.8 fL (80.0-94.0); Mean Platelet Volume 10.1 fL (7.4-10.4); Platelet Count 314 10^3/uL (130-400); Red Blood Cell Count 3.86 10^6/uL (4.70-6.10); Red Cell Dist. Width 13.2 % (11.5-14.5); White Blood Cell Count 7.3 10^3/uL (4.8-10.8)
[2024-05-05 05:14] LABS: INR 2.74; PT 29.3 Sec (11.4-14.6)
[2024-05-05 05:30] LABS: Blood Urea Nitrogen 13 mg/dl (9-20); Calcium 9.3 mg/dl (8.4-10.2); Carbon Dioxide 25 mmol/L (22-30); Chloride 102 mmol/L (98-107); Estimated Creatinine Clearance 55 ml/min; Glucose 122 mg/dl (70-99); Potassium 3.7 mmol/L (3.5-5.1); Sodium 133 mmol/L (135-145); eGFR > 60.00
[2024-05-05 06:00] VITALS: BMI 23.5
[2024-05-05 07:30] VITALS: BP 125/76
--- NOTE | 2024-05-05 07:41 | W.PN.URO.CBU ---
Today's Communication / Plan
-
no gu changes
Assessment / Plan
-
hematuria fron[m anticogulabts no bladder mass on previos ct scan but bph vivar out pt voiding asx no hematuria will follow but needs outptient apt for cysto
Diagnosis
-
Date of Service: May 05, 2024
-
Patient Diagnosis:
Post Op Day:
Patient Diagnosis:hematuria and gi bleed on warfarin Hematuria x 2 days coul not void lst pm and vivar placd and clots irigated Clear today H/p\\o bph on dutasteride
Post Op Day:
Subjective
-
voiding normally no hematuria
Objective
-
Vital Signs
Temp Pulse Resp BP Pulse Ox
97.6 F 78 16 130/74 96
05/05/24 03:47 05/05/24 03:47 05/05/24 03:47 05/05/24 03:47 05/05/24 03:47
Intake and Output
05/04/24 05/05/24 05/06/24
06:59 06:59 06:59
Intake Total 480 / 480 800 / 800
Output Total 1750 / 1750 700 / 700
Balance -1270 / -1270 100 / 100
Intake:
Oral fluids 480 / 480 800 / 800
Output:
Urine, Vivar 550 / 550
Urine, Voided 700 / 700
True Urine Output from CBI 1200 / 1200
Other:
Number of approximated MODERATE 2
amounts of urine
Laboratory Results
05/05/24 04:42
05/05/24 04:42
Review of Systems
-
Abdomen/GI: Black Stools
: No Symptoms
Physical Exam
-
General - well developed, well nourished, no acute distress
Chest - clear bilaterally
Abdomen - soft, non-tender, positive bowel sounds, no CVAT, no incisional pain or distention
Genitalia - normal
Rectal - normal
Skin - warm & dry with no rash
Neuro - AOx3, no motor deficits
Extremities - no clubbing, no cyanosis, no edema
Incision - clean, dry
Dressing - clean, dry, intact
[2024-05-05] MEDS: PROTONIX 40 MG PO (09:41)
[2024-05-05] MEDS: COZAAR 100 MG PO (09:41)
[2024-05-05] MEDS: ZETIA 10 MG PO (09:42)
[2024-05-05] MEDS: FLUSH (NSS) 1 FLUSH IV (09:42)
[2024-05-05] MEDS: PROSCAR 5 MG PO (09:42)
[2024-05-05] MEDS: FEOSOL 650 MG PO (09:42)
[2024-05-05 11:06] VITALS: BMI 23.5
[2024-05-05 11:24] VITALS: BP 129/79
--- NOTE | 2024-05-05 11:33 | W.PN.HOSP.TC ---
Today's Communication/Plan
-
Monitor vital signs and see plan
Monitor hemoglobin
Discharge today
Discussed with daughter over the phone
Patient to get repeat INR on Wednesday
abx
time of discharge 38 minutes
Assessment / Plan
Assessment / Plan
General: Well Developed, Well Nourished and No Apparent Distress
HEENT: NormoCephalic, Moist mucous membranes and Atraumatic
Respiratory: Clear
Cardiac: S1/S2 and Regular Rhythm; No Murmur or Rub
GI: Soft, Non Tender, Non Distended and Normal Bowel Sounds
Musculoskeletal: No Edema
Neuro: AO x 3 and Nonfocal/grossly intact
Psych: Calm
Hematuria /urinary tract infection
likely exacerbated by supratherapeutic INR
s/p vivar with CBI; urine this morning clear; CBI stopped. Now off Vivar catheter and is urinating on his own. No more hematuria.
-CT without active gastrointestinal hemorrhage is identified. Irregularly-shaped increased attenuation masslike structure within the urinary bladder measuring up to 5 cm in diameter. As this is new as compared with the prior examination and shows
no definitive enhancement, most likely related to blood clot. Bladder neoplasm is considered less likely. Advanced aortic atherosclerotic changes as seen prior. 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 Extensive colonic
diverticulosis without diverticulitis. Cholelithiasis.
Change antibiotics to p.o. to finish antibiotics for complicated UTI
-urine culture no growth but given symptoms will treat
-urology following
# Melena/GI bleed
likely exacerbated by supratherapeutic INR
-#hxt of Lower gastrointestinal bleed status post mesenteric coil embolization.
-Heme positive stool
No more blood in stool
now moraima regular diet
PPI
monitor hgb
-GI following, patient will follow-up with GI
# hxt of CAD
#A fib likely permanent
-Hold Coumadin; discussed with patient and his daughter that he will need repeat INR check on 05/08/2024. can start coumadin at 2mg 05/06. Patient follows cardiology outpatient
-INR therapeutic
-EKg with atrial fib
has gotten cardioversion in past
# BPH
-dutasteride continued
# Hyperlipidemia
-Zetia continued
# Iron deficiency anemia
-ferrous sulfate continued
#HTN
-continue SP[employer] losartan with hold parameters
DVT PPx - INR currently therapeutic
# CODE STATUS
-Full code
Anticipated Discharge: Today
Subjective/Interval History
-
Date of Service: May 05, 2024
Denies pain
Objective Data
-
Labs:
Laboratory Results
05/05/24 05/05/24
00:00 04:42
WBC 7.3
Hgb Cancelled 11.8 L
Hct Cancelled 33.5 L
Plt Count 314
PT 29.3 H
INR 2.74
Sodium 133 L
Potassium 3.7
Chloride 102
Carbon Dioxide 25
BUN 13
Creatinine 1.0
Glucose 122 H
Calcium 9.3
Vital Signs:
Vital Signs
Temp Pulse Resp BP Pulse Ox
98.4 F 89 18 129/79 97
05/05/24 11:24 05/05/24 11:24 05/05/24 11:24 05/05/24 11:24 05/05/24 11:24
I&O
05/04/24 05/05/24 05/06/24
06:59 06:59 06:59
Intake Total 480 / 480 800 / 800
Output Total 1750 / 1750 700 / 700
Balance -1270 / -1270 100 / 100
--- NOTE | 2024-05-05 11:46 | W.DCSUMMARY ---
Discharge Summary
Discharge Data
Date of Admission: 05/03/24
Date of Discharge: 05/05/24
-
Pending Results: No
Hospital Course
83-year-old male with past medical history of atrial fibrillation, BPH, hyperlipidemia, iron deficiency anemia, hypertension, CAD, GI bleed came to the hospital with hematuria and melena. For hematuria he appeared to had acute urinary retention for
which he initially had a Timmons catheter along with CBI. He was seen by urology throughout hospitalization. CT scan initially was done which showed irregularly shaped masslike structure in the bladder which appeared to be secondary to blood clot.
Patient hematuria continue to improve and thus Timmons catheter was discontinued prior to discharge. Patient was able to void without any difficulty upon discharge. He also had urinary tract infection for which she was started on antibiotics. For
his GI bleed it was likely thought it was exacerbated by supratherapeutic INR secondary to Coumadin. CT scan did not show any signs of acute bleed. He was seen by gastroenterology and since his hemoglobin was stable and his bleeding was improving,
gastroenterology recommended him to follow-up with them outpatient as there was no plan for any GI scope. His INR was still 2.7 on discharge so he was instructed to start Coumadin at 2 mg on 05/06/2024. Over time since patient symptoms were
improving, he was then discharged home with instructions to follow-up with all the physicians outpatient.
Discharge Plan
-
Patient Disposition: Home (Routine Discharge)
Discharge Diagnosis/Procedures: hematuria and GI bleed suspect exacerbated by supratherapeutic INR
complicated UTI
Diet: As tolerated
Activity: As tolerated
Driving Restrictions: As prior to admission
Bathing Restrictions: None
Blood Work: BMP and INR on wednesday05/08/24
Activity Restrictions/Additional Instructions:
can start coumadin 05/06 at 2mg daily
Referrals:
Ovi Nogueira MD [Active] - (call dr sutherland [phone] for follow up diagnosis is hematuria )
Nora Mendez MD [Family Provider] - in less than 1 week
Collin Palomo MD [Active] -
Sabas Lofton MD [Active] - in less than 1 week
Prescriptions:
New
warfarin 2 mg tablet
2 mg PO DAILY Qty: 30 0RF
Probiotic 10 billion cell capsule
10,000 mmu cells PO DAILY Qty: 8 0RF
cefdinir 300 mg capsule
300 mg PO BID Qty: 16 0RF
Continued
dutasteride 0.5 MG capsule
0.5 mg PO DAILY
ferrous sulfate [FeroSul] 325 MG tablet
650 mg PO DAILY
Fiber Gummies 2 GM tablet,chewable
4 gm PO DAILY
losartan 100 mg Tablet
100 mg PO DAILY
ezetimibe 10 mg Tablet
10 mg PO DAILY
therapeutic multivitamin Tablet
2 tab PO DAILY
ipratropium bromide 21 mcg (0.03 %) [place],Non-Aerosol
2 spray INTRANASAL DAILYPRN PRN (Reason: nasal drip)
pantoprazole 40 MG tablet,delayed release (DR/EC)
40 mg PO DAILY
Discontinued
warfarin 2.5 mg Tablet
2.5 mg PO SUMOTUTHFRSA@1700
warfarin 2.5 mg Tablet
1.25 mg PO WE@1700
Discharge Orders:
Discharge Patient (As Directed); Ordered 05/05/24
Ordered By: Lionel Mai
Discharge Date and Time
Discharge Date/Time: 05/05/24 14:43
Print Language: MACANESE
--- NOTE | 2024-05-05 13:15 | CM ---
Home today no needs, patient declined the need for visiting nurses.
Plan; Home no needs.
== END 2024-05-05 14:43 | disposition home or self-care (01) | DRG 813 ==
LOC: 4 EAST ACU 15:31
PROVIDERS: Registered Nurse; ADMITTING PHYSICIAN Internal Medicine; CONSULT PHYSICIAN Internal Medicine; CONSULT PHYSICIAN Specialist; EMERGENCY PHYSICIAN Emergency Medicine; FAMILY PHYSICIAN Student in an Organized Health Care Education/Training Program
DX: D68.32 Hemorrhagic disorder due to extrinsic circulating anticoagulants (principal); N39.0 Urinary tract infection, site not specified; K92.1 Melena; I50.32 Chronic diastolic (congestive) heart failure; I48.21 Permanent atrial fibrillation; I11.0 Hypertensive heart disease with heart failure; D50.9 Iron deficiency anemia, unspecified; I70.0 Atherosclerosis of aorta; E11.9 Type 2 diabetes mellitus without complications; K22.2 Esophageal obstruction; T45.515A Adverse effect of anticoagulants, initial encounter; N32.89 Other specified disorders of bladder; R31.0 Gross hematuria; I25.10 Atherosclerotic heart disease of native coronary artery without angina pectoris; Z95.1 Presence of aortocoronary bypass graft; Z95.5 Presence of coronary angioplasty implant and graft; K31.7 Polyp of stomach and duodenum; K44.9 Diaphragmatic hernia without obstruction or gangrene; N40.0 Benign prostatic hyperplasia without lower urinary tract symptoms; K64.4 Residual hemorrhoidal skin tags; E78.00 Pure hypercholesterolemia, unspecified; K22.70 Barrett's esophagus without dysplasia; K57.30 Diverticulosis of large intestine without perforation or abscess without bleeding; K80.20 Calculus of gallbladder without cholecystitis without obstruction; K21.9 Gastro-esophageal reflux disease without esophagitis; Z79.01 Long term (current) use of anticoagulants; Z79.4 Long term (current) use of insulin; Z79.82 Long term (current) use of aspirin; Z79.899 Other long term (current) drug therapy; Z87.19 Personal history of other diseases of the digestive system; Z87.891 Personal history of nicotine dependence; Z88.0 Allergy status to penicillin
CPT/HCPCS: 74174; 80048; 80053; 81003; 81015; 85014; 85018; 85025; 85027; 85610; 86850; 86900; 86901; 87086; 93005; 96374; 97163; 99285; Q9967

== ENCOUNTER 2024-06-14 14:14 | Inpatient (IN) | payer MEDICARE, BC, SELFPAY ==
[2024-06-14 10:27] VITALS: BP 176/97
[2024-06-14 11:35] VITALS: BMI 24.9
--- NOTE | 2024-06-14 12:28 | ED.GENMED ---
History of Present Illness
General
Chief Complaint: Rectal Bleeding
Source: patient
Exam Limitations: none
Time Seen by Provider: 06/14/24 10:58
Nursing documentation reviewed up to this point in time: agreed with
History of Present Illness
History of Present Illness:
84-year-old male past medical history of A-fib currently on Coumadin, hypertension presenting to the emergency department today with concerns of dark stool with also some redness to the stool this morning. Does have a history of GI bleeds in the
past was admitted here few weeks ago. Denies any chest pain shortness of breath abdominal pain lightheadedness nausea vomiting.
Past History
Past History
ED Past Medical History: Arrthythmia, CAD, Cancer, GERD, HTN, Hypercholesterolemia, Valvular disease and Other (BPH)
ED Past Surgical History: Urological and Other
Social History
Tobacco: Former smoker
Alcohol: None
Drug: None
Personal:
Living: alone
Employment: Employed
Family History
Family History: Other
Review of Systems
Review of Systems
Allergies reviewed?: Yes
All Other Systems: ROS reviewed and negative except as documented in HPI and ROS
Phy Exam
Physical Exam
Physical Exam:
GENERAL: Alert , in no apparent distress
EYE: pupils equal and reactive
NECK: Supple, no significant adenopathy.
ENT: o/p clr, mmm.
CARDIAC: Regular rate and rhythm .
LUNGS: Clear breath sounds bilaterally, no acute respiratory distress, no wheezes/rales/rhonchi
ABDOMEN: Rectal examination revealing mixture of red and dark brown to black stool. No obvious bleeding hemorrhoids. Abdomen is soft, without focal tenderness, no r/g, no cvat
NEUROLOGICAL: Alert and oriented, no focal neuro deficits
SKIN: Warm and dry, skin intact.
MUSCULOSKELETAL: No edema, well perfused.
PSYCH: Normal and appropriate interaction.
Course
Orders/Labs/Results
Orders:
Orders
06/14/24 11:48
Pantoprazole [Protonix IV] 80 mg IV NOW STA
06/14/24 12:04
0.9% Sodium Chloride 500 ml [Nss] 500 ml IV BOLUS
06/14/24 12:33
Type+Screen Urgent
CBC/With Diff [Complete Blood Count/With Diff] Urgent
CMP [Comprehensive Metabolic Panel] Urgent
PT/INR [Prothrombin Time] Urgent
06/14/24 14:01
Admit/Transfer Patient As Directed
Co-Sign Provider:
Level of Care: Inpatient admission
Assign to:: Telemetry
Physician / Group: [place]
Diagnosis: GI Bleed
Reason for Telemetry: Arrhythmia
Date to Stop Telemetry: 06/17/24
Time to Stop Telemetry: 11:00
Reason for Hospitalization: IVFs, Bleeding
Expected length of stay greater than two midnights?: Yes
ELOS- Estimated Length of Stay in days: 3
I certify the patient meets the requirements for IP care: Yes
CARDIOLOGY CONSULT Routine
Consulting Provider: Ari Dai
Was physician already notified: Yes
GASTROINTESTINAL CONSULT Routine
Consulting Provider: Bi Rojas
Was physician already notified: Yes
PRN Pain Medication Management As Directed
May give lesser potent ordered pain med per pt: Yes
preference::
Protocol:: Medication orders for pain may be administered in a
manner that supports deferring to patient preference
when the pt is:
- Requesting an ordered lesser potent pain medication.
Least to most potent pain medications are defined
as: acetaminophen < NSAID < tramadol < opioids
(morphine, oxycodone, hydromorphone).
- Requesting a lesser dose of the same medication IF
ORDERED.
- Requesting a less intrusive route of administration
if both routes are prescribed by the provider (PO <
IV).
06/14/24 14:03
Code Status As Directed
Resuscitation Status: Full Code
06/14/24 17:30
H&H Q8H
06/15/24 01:30
H&H Q8H
06/15/24 09:30
H&H Q8H
06/15/24 17:30
H&H Q8H
06/17/24 11:00
DC Protocol for Telemetry ONCE
Abnormal Lab Results
06/14/24
12:33
RBC 4.40 L 10^6/uL
(4.70-6.10)
Hct 37.9 L %
(39.0-52.0)
Absolute Neuts (auto) 6.7 H 10^3/uL
(1.4-6.5)
Absolute Lymphs (auto) 0.8 L 10^3/uL
(1.2-3.4)
Neutrophils % 83.0 H %
(42.2-75.2)
Lymphocytes % 9.9 L %
(20.5-51.1)
PT 31.0 H Sec
(11.4-14.6)
Glucose 113 H mg/dl
(70-99)
06/14/24 12:33
06/14/24 12:33
Vital Signs
Initial and Last Documented VS:
Initial Vital Signs
Temp Pulse Resp BP Pulse Ox
98.1 F 94 18 176/97 98
06/14/24 10:27 06/14/24 10:27 06/14/24 10:27 06/14/24 10:27 06/14/24 10:27
Last Documented Vital Signs
Temp Pulse Resp BP Pulse Ox
98.1 F 84 18 176/97 97
06/14/24 10:27 06/14/24 11:35 06/14/24 11:35 06/14/24 10:27 06/14/24 11:35
MDM/Problems Addressed
MDM/Problems Addressed:
84-year-old male presenting to the emergency department concerns of GI bleed this morning. No abdominal pain lightheadedness chest pain or shortness of breath. Upon arrival blood pressure elevated otherwise vital signs are normal. Rectal
examination revealing dark stool as well as red blood. INR 2.9 concerning patient is anticoagulated with ongoing bleeding here plan to admit for further monitoring and assessment.
*Critical Care Note
Total Time (30-74mins, 75-104mins- exclusive of procedures): Not Applicable
ED Attending Note
-
Portions of this chart may have been created with voice recognition software.� Occasional wrong word or��sound alike� substitutions may have occurred due to the inherent limitations of voice recognition software.
Discharge Plan
Departure
Patient Disposition: Admit
Date of Disposition: 06/14/24
Time of Disposition: 14:30
Admit to: Med/Surg
Admit to doctor: [place]
Presentation/result/management discussed w/ accepting MD/DO: Hospitalist
Patient with high blood pressure during this ER visit?: No
Condition: Good
Covid-19: Not Applicable
Discharge Problem:
Acute GI bleeding
Interventions
Interventions:
*General Assessment Last Done: 06/14/24 11:36
*Neglect/Abuse Screening Last Done: 06/14/24 11:36
ED- Fall Risk Assessment Last Done: 06/14/24 11:36
*ED COVID-19 Vaccine History Last Done: 06/14/24 11:36
UW-Hrddoh-Vapbrtoakj Assessment Last Done: 06/14/24 11:36
ED- Cardiac Assessment Last Done: 06/14/24 11:36
ED- Pulmonary Assessment Last Done: 06/14/24 11:36
[2024-06-14 12:51] LABS: % Basophils 0.5 % (0-2); % Eosinophils 0.5 % (0-6); % Immature Granulocytes 0.2 % (0-0.5); % Lymphocytes 9.9 % (20.5-51.1); % Monocytes 5.9 % (1.7-9.3); Absolute Lymphocytes 0.8 10^3/uL (1.2-3.4); Absolute Monocytes 0.5 10^3/uL (0.1-0.6); Absolute Neutrophils 6.7 10^3/uL (1.4-6.5); Hematocrit 37.9 % (39.0-52.0); Mean Corp Hgb Conc. 34.3 g/dL (33.0-37.0); Mean Corpuscular Hgb 29.5 pg (27.0-31.0); Mean Corpuscular Volume 86.1 fL (80.0-94.0); Mean Platelet Volume 9.9 fL (7.4-10.4); Nucleated Red Blood Cells % 0 % (-); Platelet Count 295 10^3/uL (130-400); Red Cell Dist. Width 12.9 % (11.5-14.5)
[2024-06-14 12:55] LABS: INR 2.93
[2024-06-14] MEDS: PROTONIX IV 80 MG IV (12:57)
[2024-06-14] MEDS: NSS 500 IV (12:57)
[2024-06-14 13:03] LABS: ALT (SGPT) 17 U/L (0-50); AST (SGOT) 26 U/L (17-59); Albumin 4.2 g/dl (3.5-5.0); Alkaline Phosphatase 94 U/L (38-126); Blood Urea Nitrogen 13 mg/dl (9-20); Calcium 9.7 mg/dl (8.4-10.2); Carbon Dioxide 25 mmol/L (22-30); Chloride 106 mmol/L (98-107); Estimated Creatinine Clearance 60 ml/min; Glucose 113 mg/dl (70-99); Potassium 4.1 mmol/L (3.5-5.1); Sodium 141 mmol/L (135-145); Total Bilirubin 0.7 mg/dl (0.2-1.3); Total Protein 7.1 g/dl (6.3-8.2); eGFR > 60.00
[2024-06-14 13:06] VITALS: BP 153/95
--- NOTE | 2024-06-14 13:38 | HPS.HSE ---
Family Physician
-
Family Physician: Nora Mendez MD
Chief Complaint
-
Rectal Bleeding
History of Present Illness
Patient is a 84 yo male with a hx of permanent Afib on warfarin, CAD, and prior GI bleeding with last episode in April 2024 presents for bloody stool that started this morning. His first bowel movement this morning was black, loose, and the toilet
water was bright red. He reports his first bowel movement had the most blood, and that the toilet water was 'pinkish' for subsequent bowel movements, although the stool has remained black. He reports 4-5 bowel movements total today. He reports that
last week his INR was 1.7 and his warfarin dosing regimen was increased. His last upper endoscopy was in Aug 2023, and last colonoscopy in 2019. He does not take NSAIDs, and drinks alcohol only occasionally. He denies dizziness, lightheadedness,
headache, chest pain, SOB, abdominal pain, nausea, or vomiting.
Medical History
Past Medical History
Past Medical History: Reports Other
Additional Past Medical History:
Coronary Artery Disease
Permanent Atrial Fibrillation
Essential Hypertension
Hyperlipidemia
BPH
GI Bleed
Past Surgical History: Reports Other
Additional Past Surgical History:
CABG
Mitral Valve Repair
MAZE Procedure
TURBT
TURP
Mesenteric Artery Coil Embolization
Social History
Tobacco: Non-smoker
Alcohol: Occasional
Drug: None
Living: With Family
Family History
Family History: Not pertinent
Allergies / Home Medications
Allergies reflects when Allergies were last updated in [employer].
Home Medications with original date entered in [employer]
Allergy/Medication List:
Allergies
Allergy/AdvReac Type Severity Reaction Status Date / Time
amoxicillin Allergy Swelling Verified 06/14/24 10:31
pollen extracts Allergy congestion Verified 06/14/24 10:31
Home Medications
dutasteride 0.5 mg capsule 0.5 mg PO DAILY BPH 03/18/17
ferrous sulfate 325 mg (65 mg iron) tablet (FeroSul) 650 mg PO DAILY Supplement 10/25/19
inulin 2 gram chewable tablet (Fiber Gummies) 4 gm PO DAILY Diabetes 10/25/19
ezetimibe 10 mg tablet 10 mg PO DAILY High Cholesterol 12/30/23
losartan 100 mg tablet 100 mg PO DAILY Blood Pressure 12/30/23
pantoprazole 40 mg tablet,delayed release 40 mg PO DAILY Gastrointestinal Issue 05/03/24
therapeutic multivitamin 2 tab PO DAILY Supplement 05/03/24
warfarin 2 mg tablet 2 mg PO SuMoWeFrSa@189906/14/24
warfarin 4 mg tablet 4 mg PO TUTH@189906/14/24
Review of Systems
-
A 12 point ROS was completed and negative except as noted: Yes
Constitutional: Denies Fever or Chills
Respiratory: Denies Cough or Trouble Breathing
Cardiac: Denies Chest Pain or Palpitations
Abdomen/GI: Reports See HPI
Physical Exam
Vital Signs
Vital Signs
Temp Pulse Resp BP Pulse Ox
98.1 F 84 18 176/97 97
06/14/24 10:27 06/14/24 11:35 06/14/24 11:35 06/14/24 10:27 06/14/24 11:35
Physical Exam
General: Comfortable and Conversant
HEENT: Anicteric and Moist mucous membranes
Respiratory: Clear and Non Labored Respirations
Cardiac: S1/S2 and Regular Rhythm
GI: Soft and Non Tender
Rectal: Other (Per ED Mix of red and black stool)
Musculoskeletal: No Clubbing, No Cyanosis and No Edema
Skin: Warm and Dry
Neuro: Awake, Alert, Oriented and Nonfocal/grossly intact
Psych: Calm
Laboratory Results
-
06/14/24 12:33
06/14/24 12:33
Laboratory Results
PT 31.0 Sec (11.4-14.6) H 06/14/24 12:33
INR 2.93 06/14/24 12:33
Total Bilirubin 0.7 mg/dl (0.2-1.3) 06/14/24 12:33
AST 26 U/L (17-59) 06/14/24 12:33
ALT 17 U/L (0-50) 06/14/24 12:33
Alkaline Phosphatase 94 U/L (38-126) 06/14/24 12:33
Data Reviewed
-
Lab Data: Labs Reviewed by me
Old Records: Reviewed
Impression/Plan
-
GI Bleed
-Consult GI
-Allow clears liquids
-Continue Protonix BID
-Hold Coumadin
Permanent Atrial Fibrillation
-Coumadin on hold in setting of GI Bleed
-Consult Cardiology further anticoagulation discussions
Essential Hypertension
-Continue losartan with hold parameters
Hyperlipidemia
-Continue Ezetimibe
BPH
-Continue dutasteride
Hx Coronary Artery Disease s/p CABG
DVT proph: SCDS
Code Status: Full Code
[2024-06-14 14:00] VITALS: BP 168/93
--- NOTE | 2024-06-14 14:11 | CON.CAR ---
Addendum entered and electronically signed by Ari Dai MD 06/14/24 17:19:
I saw and examined the patient.
The [employer]'s note was reviewed and I agree with the note.
Comment: 84 y/o male with CAD with hx CABG (2014), MR s/p repair (2014), permanent AFIB (with slow ventricular response) on warfarin, recurrent GIB (aspirin stopped in past, now just on warfarin), BPH, HTN, DM, and statin intolerance who is here for
evaluation of black stool that he noted this AM, with redness to the toilet water. He has no complaint of chest pain or shortness of breath. On exam he has a irregularly irregular rate and rhythm with no murmur rubs or gallops lungs are clear to
auscultation bilaterally no evidence of JVP. Hemoglobin is increased from prior. But with melena and possible bright red blood, agree with holding warfarin for now. I discussed with him transitioning to Eliquis in the future. He said he thought
this was not an option. Will ask case management to zarate out Eliquis 5 mg twice a day. For now, the most pressing issue is trying to determine etiology of melena.
Original Note:
Consultation
Consultation Request
Date/Time Consultation Requested: 06/14/24 1406
Date/Time Consultation Performed: 06/14/24 1411
Requesting Provider: Shakira PATTERSON
Performing Provider: Apryl FRANKLIN for Dr. Dai
Reason for Consultation: GI bleed, on warfarin for AFIB
Medical History
-
Chief Complaint: black stool
History of Present Illness:
84 y/o male with CAD with hx CABG (2015), MR s/p repair (2014), permanent AFIB (with slow ventricular response) on warfarin, recurrent GIB (aspirin stopped in past, now just on warfarin), BPH, HTN, DM, and statin intolerance who is here for
evaluation of black stool that he noted this AM, with redness to the toilet water. He is feeling well otherwise and denies any CP, SOB, or palpitations. We are consulted since he is on warfarin for AFIB. INR is 2.93. He is in no distress at the time
of my assessment. Hemoglobin is stable. Of note, he was hospitalized about 6 weeks ago with blood in urine and stool. He had a UTI, treated with abx and had vivar with CBI. Blood in stool cleared up and plan was for OP GI follow-up.
Past Medical History
Past Medical History: Arrhythmias, CAD, Valvular Disease and Other (as above)
Social History
Tobacco: Former Smoker
Family History
Family History: Reviewed & Not Pertinent
Allergies / Home Medications
Allergy/AdvReac Type Severity Reaction Status Date / Time
amoxicillin Allergy Swelling Verified 06/14/24 10:31
pollen extracts Allergy congestion Verified 06/14/24 10:31
�Medication �Instructions �Recorded �Confirmed �Type
dutasteride 0.5 mg capsule 0.5 mg PO DAILY BPH 03/18/17 06/14/24 History
ferrous sulfate 325 mg (65 mg 650 mg PO DAILY Supplement 10/25/19 06/14/24 History
iron) tablet (FeroSul)
inulin 2 gram chewable tablet 4 gm PO DAILY Diabetes 10/25/19 06/14/24 History
(Fiber Gummies)
ezetimibe 10 mg tablet 10 mg PO DAILY High Cholesterol 12/30/23 06/14/24 History
losartan 100 mg tablet 100 mg PO DAILY Blood Pressure 12/30/23 06/14/24 History
pantoprazole 40 mg tablet,delayed 40 mg PO DAILY Gastrointestinal 05/03/24 06/14/24 History
release Issue
therapeutic multivitamin 2 tab PO DAILY Supplement 05/03/24 06/14/24 History
warfarin 2 mg tablet 2 mg PO SuMoWeFrSa@189906/14/24 06/14/24 History
warfarin 4 mg tablet 4 mg PO TUTH@189906/14/24 06/14/24 History
Review of Systems
-
History Source: Patient
All other systems: Negative unless noted
Abdomen/GI: Black Stools
Physical Exam
Vital Signs
Temp Pulse Resp BP Pulse Ox
98.1 F 84 18 176/97 97
06/14/24 10:27 06/14/24 11:35 06/14/24 11:35 06/14/24 10:27 06/14/24 11:35
Lab Results
06/14/24 12:33
Physical Exam
General: Well Developed, Well Nourished and No Apparent Distress
HEENT: Normocephalic, Anicteric and Other (hearing aid in place)
Respiratory: Clear and Non Labored Respirations
Cardiac: Irregular Rhythm
Musculoskeletal: No Edema
Skin: Warm and Dry
Neuro: AO x 3
Psych: Calm
Impression / Plan
-
GIB:
-HGB stable - follow closely
-GI is consulted
Permanent AFIB:
-rate controlled off medicines. Will obtain baseline EKG. Follow telemetry.
-[id number] score is 5 for HTN, age, CAD, and DM. He is typically on warfarin, which is held for GIB.
CAD s/p CABG:
-stable without CP
MR s/p MV repair:
-stable by echo
HTN:
-continue losartan and follow
Data Reviewed
-
EKG: Tracing Personally Visualized and interpreted (EKG 05/03/24: AFIB 76 BPM)
Labs: Labs Reviewed by me
Old Records: Reviewed (Dr. Lofton office visit 03/28/24: AFIB now permanent, diltiazem discontinued for slow ventricular response)
--- NOTE | 2024-06-14 14:32 | W.PN.UPDATE ---
Update Note
Progress Note Update
This is an addendum to the H&P written by Luis Osorio on 06/14/2024.� 84-year-old male past medical history of GI bleeding suspected diverticulosis status post mesenteric artery embolization, permanent atrial fibrillation on Coumadin, CAD
status post CABG in 2015, mitral repair in 2015, hypertension, GERD, hyperlipidemia, BPH, deficient anemia, hematuria with cystoscopy/ TURBT here for dark stool.� Rectal exam has moderate amount of red blood, black stool he had multiple episodes of
bleeding here.
He was admitted last month for hematuria/melena.� He required CBI for hematuria.� He was treated for UTI.� GI bleeding was thought to be provoked from supratherapeutic INR.� CTA was negative for active bleeding.� Outpatient follow GI was recommended.
Hemoglobin of 13.� Hold Coumadin.� Clear liquid diet.� IV protonix BID.�GI consulted.� Will need to discuss with cardiology regarding possibly permanently discontinuing Coumadin.
--- NOTE | 2024-06-14 15:25 | CON.GI ---
Addendum entered and electronically signed by Jaja Conklin DO 06/14/24 17:07:
The patient was seen and examined by me independently in collaboration with the nurse practitioner.
Past medical history/social history/medications/allergies/family history reviewed.
Lab data and imaging data reviewed.
Santiago Naidu is a 84-year-old male with past medical history of A-fib on Coumadin, CAD status post CABG, mitral valve repair, hypertension, hyperlipidemia, history of diverticular bleeding status post mesenteric artery embolization who presents
with painless hematochezia. He reports having an episode this morning, subsequently arrived to the ER where he was witnessed to have multiple episodes of small-volume hematochezia. Hemoglobin on admission was 13, MCV 86, platelets 295, INR 2.93;
BUN 13. Rectal with bright red blood, also has dark brown stool. Noted to have black stool by ER provider. He is on PO iron.
Of note patient was recently admitted in May, seen by GI for reported melena as well as hematuria, CTA showed a 5 cm bladder mass which was possibly clot. Hemoglobin remained stable and it was recommended that he have outpatient follow-up.
He is hemodynamically stable. Last dose of Coumadin was last night at 9 PM.
Recommendations:
-2 large bore peripheral gauge IVs
-Repeat pm H&H
-hold coumadin
-will monitor patient overnight and watch blood counts, reevaluate in AM to determine if endoscopic evaluation is necessary, flex sig +/-EGD
Original Note:
Consultation
-
Date/Time Consultation Requested: 06/14/24 1400
Date/Time Consultation Performed: 06/14/24 1525
Requesting Provider: Shakira Osorio PA-C
Performing Provider: RIGOBERTO Glass, Theresa Conklin DO
Reason for Consultation: GI bleed
Medical History
Chief Complaint / HPI
Chief Complaint: black stools
History of Present Illness:
Pt is a 84yo presents with hx afib on warfarin, CAD with prior stenting and CABG in 2014, mitral valve repair 2014, GERD, hypertension, hyperlipidemia, BPH, iron deficiency anemia on oral iron, history of GI bleed status post mesenteric coil
embolization 2014 , suspected diverticular bleeding (Cscope x2 in 2019 with negative CTA) and recent admission in May with melena and hematuria. There was concern for irregular mass in bladder possible clot with also concern for UTI and noted
with INR 2.76 with coumadin use. CTA was neg for active GI bleed but also noted extensive diverticulosis and no further GI testing was completed that admission. He now presents with recurrent bleeding with black then bloody stools x1 then note
pink tinge in toilet. Last EGD 2022 with normal esophagus, irreg z line, patent Schatzki ring, HH, gastric polyps, granular gastric mucosa, normal duodenum. bx neg. Colonoscopy: March 2020, Dr. Castillo, adequate prep for purpose of bleeding,
enlarged prostate on exam, left-sided diverticulosis with blood throughout the entire colon but more red and fresh in the left colon. No source found after 2 L of lavage.
Pt denies any further bleeding since admission. He denies odynophagia, dysphagia, GERD, abdominal pain, diarrhea, or constipation. No NSAID use. He currently denies hematuria.
Past Medical History
Past Medical History: Arrhythmias (afib), CAD, CHF, GERD, HTN, Hypercholesterolemia, Valvular Disease (MVP) and Other (BPH, gi bleed suspected diverticular with coil embolization, SHAKEEL, hematuria, mcgill's )
Past Surgical History: Cardiac (MAZE procedure, CABG), Urological (TURBT, TURP) and Other (mesenteric artery coil embolization with GI bleed)
Social History
Tobacco: Non-Smoker
Alcohol: None
Drug: None
Living: Alone
Employment: Retired
Family History
Family History: Other (no family hx colon CA or polyps)
Allergies / Home Medications
Allergy/AdvReac Type Severity Reaction Status Date / Time
amoxicillin Allergy Swelling Verified 06/14/24 10:31
pollen extracts Allergy congestion Verified 06/14/24 10:31
�Medication �Instructions �Recorded
dutasteride 0.5 mg capsule 0.5 mg PO DAILY BPH 03/18/17
ferrous sulfate 325 mg (65 mg 650 mg PO DAILY Supplement 10/25/19
iron) tablet (FeroSul)
inulin 2 gram chewable tablet 4 gm PO DAILY Diabetes 10/25/19
(Fiber Gummies)
ezetimibe 10 mg tablet 10 mg PO DAILY High Cholesterol 12/30/23
losartan 100 mg tablet 100 mg PO DAILY Blood Pressure 12/30/23
pantoprazole 40 mg tablet,delayed 40 mg PO DAILY Gastrointestinal 05/03/24
release Issue
therapeutic multivitamin 2 tab PO DAILY Supplement 05/03/24
warfarin 2 mg tablet 2 mg PO [id number] Blood Clot 06/14/24
Prevention/Tx
warfarin 4 mg tablet 4 mg PO [id number] Blood Clot 06/14/24
Prevention/Tx
Review of Systems
-
History Source: Patient
Constitutional: Reports No Symptoms
EENT: Reports No Symptoms
Respiratory: Reports No Symptoms
Cardiac: Reports No Symptoms
Abdomen/GI: Reports Bloody Stools and Black Stools
: Reports No Symptoms
Musculoskeletal: Reports No Symptoms
Skin: Reports No Symptoms
Neurological: Reports No Symptoms
Endocrine: Reports No Symptoms
Hematologic/Lymphatic: Reports Bleeding
Vital Signs
Temp Pulse Resp BP Pulse Ox
98.1 F 84 16 168/93 98
06/14/24 10:27 06/14/24 15:00 06/14/24 15:00 06/14/24 14:00 06/14/24 14:45
Physical Exam
Exam
General: Well Developed, Well Nourished and No Apparent Distress
HEENT: Normocephalic and Anicteric
Respiratory: Clear
Cardiac: Regular Rhythm
GI: Soft
Musculoskeletal: No Clubbing and No Cyanosis
Skin: Warm and Dry
Neuro: Awake, Alert and AO x 3
Psych: Calm
Results
WBC 8.0 10^3/uL (4.8-10.8) 06/14/24 12:33
Hgb 13.0 g/dL (13.0-18.0) 06/14/24 12:33
Hct 37.9 % (39.0-52.0) L 06/14/24 12:33
MCV 86.1 fL (80.0-94.0) 06/14/24 12:33
Plt Count 295 10^3/uL (130-400) 06/14/24 12:33
Absolute Neuts (auto) 6.7 10^3/uL (1.4-6.5) H 06/14/24 12:33
PT 31.0 Sec (11.4-14.6) H 06/14/24 12:33
INR 2.93 06/14/24 12:33
Sodium 141 mmol/L (135-145) 06/14/24 12:33
Potassium 4.1 mmol/L (3.5-5.1) 06/14/24 12:33
Chloride 106 mmol/L (98-107) 06/14/24 12:33
Carbon Dioxide 25 mmol/L (22-30) 06/14/24 12:33
BUN 13 mg/dl (9-20) 06/14/24 12:33
Creatinine 0.9 mg/dL (0.7-1.3) 06/14/24 12:33
Calcium 9.7 mg/dl (8.4-10.2) 06/14/24 12:33
Total Bilirubin 0.7 mg/dl (0.2-1.3) 06/14/24 12:33
AST 26 U/L (17-59) 06/14/24 12:33
ALT 17 U/L (0-50) 06/14/24 12:33
Alkaline Phosphatase 94 U/L (38-126) 06/14/24 12:33
Diagnostic Image Results:
05/03/24 CT Abd/pelvis Angio W/wo Iv
1. No active gastrointestinal hemorrhage is identified.
2. Irregularly-shaped increased attenuation masslike structure within the urinary bladder measuring up to 5 cm in diameter. As this is new as compared with the prior examination and shows no definitive enhancement, most likely related to blood
clot. Bladder neoplasm is considered less likely.
3. Advanced aortic atherosclerotic changes as seen prior. 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
4. Extensive colonic diverticulosis without diverticulitis.
5. Cholelithiasis.
Prior GI Procedures:
08/26/2023 EGD: Normal esophagus, Z-line irregular, biopsies consistent with Mcgill's esophagus. Widely patent nonobstructing and mild Schatzki ring. 3 cm hiatal hernia. A few gastric polyps biopsied consistent with fundic gland polyps.
Granular gastric mucosa with unrevealing biopsies. Normal examined duodenum, negative for celiac.
Colonoscopy: March 2020, Dr. Castillo, adequate prep for purpose of bleeding, enlarged prostate on exam, left-sided diverticulosis with blood throughout the entire colon but more red and fresh in the left colon. No source found after 2 L of lavage.
Colonoscopy 03/2020: 10 mm pedunculated polyp, descending colon clip placed, diverticulosis
2014, status post CTA with embolization of the descending colon artery
Colonoscopy in 2013: diverticulosis, external hemorrhoids
EGD in 2014: erythematous antrum, hiatal hernia, likely benign gastric tumor in fundus, mucosal changes suspicious for short segment Mcgill's esophagus, mild Schatzki ring; per review of pathology, no Mcgill's esophagus nor malignancy noted from
that biopsy report.
Colonoscopy in 2011: diverticulosis, three polyps removed (4-5 mm), per biopsy report: adenomatous and benign serrated polyp with features suspicious but not diagnostic of sessile serrated adenoma
Assessment / Plan
-
Pt is a 84yo presents with hx afib on warfarin, mcgill's CAD with prior stenting and CABG in 2014, mitral valve repair 2014, GERD, hypertension, hyperlipidemia, BPH, iron deficiency anemia on oral iron, history of GI bleed status post mesenteric
coil embolization 2014 , suspected diverticular bleeding (Cscope x2 in 2019 with negative CTA) and recent admission in May with melena and hematuria. There was concern for irregular mass in bladder possible clot with also concern for UTI and
noted with INR 2.76 with coumadin use. CTA was neg for active GI bleed but also noted extensive diverticulosis and no further GI testing was completed that admission. He now presents with recurrent bleeding with black then bloody stools x1 then
note pink tinge in toilet. Last EGD 2022 with normal esophagus, irreg z line, patent Schatzki ring, HH, gastric polyps, granular gastric mucosa, normal duodenum. bx neg. Colonoscopy: March 2020, Dr. Castillo, adequate prep for purpose of bleeding,
enlarged prostate on exam, left-sided diverticulosis with blood throughout the entire colon but more red and fresh in the left colon. No source found after 2 L of lavage.
Problem list:
- black then red stools
-hx hematuria/melena in May
-History of GI bleed with coil embolization 2014, suspected diverticular with extensive diverticulosis on prior imaging and colonoscopy in 2019
-Mcgill's esophagus on chronic PPI
-History of recurrent hematuria s/p cystoscopy and TURBT with nodular hyperplasia of bladder with follow up urology eval in May with hematuria
-History of A-fib on chronic anticoagulation with Coumadin
-chronic SHAKEEL on oral iron
Other pertinent medical history:
-CAD with history of CABG and mitral valve repair in 2014
-GERD
-HTN
-HLD
-BPH
Recommendations:
Etiology of bleeding related to upper vs lower GI bleed with black and red stool
only small volume blood passed
INR 2.93 allow to drift down with Coumadin hold no reversal given in ER
trend hbg noted 13 on admission and stool record
can consider eventual EGD/colon if black/red stool persists with recurrent admission if bleeding persist
cont PPI BID
ok for clears
-if increased active GI bleeding/hemodynamically unstable GI bleeding, please obtain CTA
-
-
Thank you for consultation and allowing me to participate in the patient's care. Please call the patient ombudsperson GI physician during the after hours with any questions or concerns.
[2024-06-14 15:56] VITALS: BP 165/84; BMI 23.6
[2024-06-14 16:40] VITALS: BMI 23.6
[2024-06-14 19:12] VITALS: BP 136/86
[2024-06-14 20:32] LABS: Hematocrit 35.2 % (39.0-52.0); Hemoglobin 12.2 g/dL (13.0-18.0)
[2024-06-14] MEDS: NSS (PRESERVATIVE FREE) 10 ML IV (21:30)
[2024-06-14] MEDS: PROTONIX IV 40 MG IV (21:30)
[2024-06-14 23:25] VITALS: BP 149/95
[2024-06-15 01:39] LABS: Hematocrit 32.5 % (39.0-52.0); Hemoglobin 11.4 g/dL (13.0-18.0)
[2024-06-15 03:34] VITALS: BP 136/78
[2024-06-15 06:00] VITALS: BMI 23.3
[2024-06-15 06:26] LABS: Hematocrit 33.4 % (39.0-52.0); Hemoglobin 11.4 g/dL (13.0-18.0); Mean Corp Hgb Conc. 34.1 g/dL (33.0-37.0); Mean Corpuscular Hgb 29.8 pg (27.0-31.0); Mean Corpuscular Volume 87.2 fL (80.0-94.0); Mean Platelet Volume 10.1 fL (7.4-10.4); Platelet Count 300 10^3/uL (130-400); Red Blood Cell Count 3.83 10^6/uL (4.70-6.10); Red Cell Dist. Width 13.2 % (11.5-14.5); White Blood Cell Count 7.4 10^3/uL (4.8-10.8)
[2024-06-15 06:46] LABS: Blood Urea Nitrogen 12 mg/dl (9-20); Calcium 9.5 mg/dl (8.4-10.2); Carbon Dioxide 25 mmol/L (22-30); Chloride 106 mmol/L (98-107); Estimated Creatinine Clearance 60 ml/min; Glucose 121 mg/dl (70-99); Potassium 4.1 mmol/L (3.5-5.1); Sodium 140 mmol/L (135-145); eGFR > 60.00
--- NOTE | 2024-06-15 07:03 | W.PN.HOSP.TC ---
Today's Communication/Plan
-
Coumadin on hold given gastrointestinal bleeding
Monitor INR
Plan for colonoscopy tomorrow
Appreciate cardiology and gastroenterology
Assessment / Plan
Assessment / Plan
Physical Exam
General: Not in acute distress
HEENT: Normocephalic. Moist mucous membranes
Respiratory: Clear to Auscultation Bilaterally
Cardiac: S1/S2 and Irregular Rhythm
GI: Soft and Non Tender. Positive bowel sounds.
Musculoskeletal: No Cyanosis and No Edema
Skin: Warm and Dry
Neuro: Awake, Alert, Oriented and Nonfocal/grossly intact
Psych: Calm
Assessment/Plan
GI Bleed
-Consulted GI, appreciate evaluation and recommendations
-Continue clears liquids diet
-Continue Protonix BID
-Hold Coumadin
-Colonoscopy tentatively planned for tomorrow
Permanent Atrial Fibrillation
-Coumadin on hold in setting of GI Bleed
-Monitor INR
-[id number] score is 5
-Consult Cardiology further anticoagulation discussions: planning to switch to Eliquis, case management to check pricing
Essential Hypertension
-Continue losartan with hold parameters
Hyperlipidemia
-Continue Ezetimibe
BPH
-Continue dutasteride
Hx Coronary Artery Disease s/p CABG
DVT proph: SCDS
Code Status: Full Code
Anticipated Discharge: > 48 hours
Subjective/Interval History
-
Date of Service: June 15, 2024
Patient was seen and examined. He had burgundy stool on rectal exam as per GI. He reported no new symptoms or complaints this morning.
Objective Data
-
Labs:
Laboratory Results
06/14/24 06/15/24 06/15/24
20:27 01:31 05:54
WBC 7.4
Hgb 12.2 L 11.4 L 11.4 L
Hct 35.2 L 32.5 L 33.4 L
Plt Count 300
PT
INR
Sodium 140
Potassium 4.1
Chloride 106
Carbon Dioxide 25
BUN 12
Creatinine 0.9
Glucose 121 H
Calcium 9.5
06/15/24 06/15/24 06/15/24
06:00 09:30 17:30
WBC
Hgb Pending Pending
Hct Pending Pending
Plt Count
PT Pending
INR Pending
Sodium
Potassium
Chloride
Carbon Dioxide
BUN
Creatinine
Glucose
Calcium
Vital Signs:
Vital Signs
Temp Pulse Resp BP Pulse Ox
97.6 F 86 16 136/78 98
06/15/24 03:34 06/15/24 03:34 06/15/24 03:34 06/15/24 03:34 06/15/24 03:34
I&O
06/14/24 06/15/24 06/16/24
06:59 06:59 06:59
Intake Total 1080 / 1080
Balance 1080 / 1080
[2024-06-15 07:56] VITALS: BP 151/85
[2024-06-15] MEDS: PROSCAR 5 MG PO (08:24)
[2024-06-15] MEDS: COZAAR 100 MG PO (08:24)
[2024-06-15] MEDS: PROTONIX IV 40 MG IV ×2 (08:25→20:00)
[2024-06-15] MEDS: NSS (PRESERVATIVE FREE) 10 ML IV ×2 (08:25→20:00)
[2024-06-15] MEDS: ZETIA 10 MG PO (08:25)
--- NOTE | 2024-06-15 08:37 | W.PN.CD ---
Today's Communication / Plan
-
continue to hold warfarin
would prefer switch to eliquis if affordable
no contraindication to proceed to cscope
Impression / Plan
-
GIB:
-HGB small drop to 11 from 13, now stable, but bianca burgandy stool
-plan for cscope when INR amenable
Permanent AFIB:
-rate controlled off medicines.
-[id number] score is 5 for HTN, age, CAD, and DM. He is typically on warfarin, which is held for GIB.
-would prefer to resume Eliquis when able, cm c/s placed for pricing
CAD s/p CABG:
-stable without CP
MR s/p MV repair:
-stable by echo
HTN:
-continue losartan and follow
Subjective:
He is feeling well without complaint
Physical Exam
Vital Signs/Labs
Vital Signs
Temp Pulse Resp BP Pulse Ox
97.8 F 86 16 151/85 97
06/15/24 07:56 06/15/24 08:24 06/15/24 07:56 06/15/24 08:24 06/15/24 07:56
06/14/24 06/15/24 06/16/24
06:59 06:59 06:59
Actual Weight 71.577 kg
06/15/24 05:54
PT 31.0 Sec (11.4-14.6) H 06/14/24 12:33
INR 2.93 06/14/24 12:33
Physical Exam
Constitutional: No acute distress
Cardiovascular: Pedal edema is absent, JVD pressure is normal, Systolic murmur absent, Diastolic murmur absent and Rhythm/rate is irregular
Respiratory: Respiratory effort normal, Lungs clear to auscul., Wheeze Absent, Crackles Absent and Rhonchi Absent
Neuro/Psych: AO x 3
Data Reviewed
-
Date of Service: June 15, 2024
EKG: Other (tele with rate controlled fib)
--- NOTE | 2024-06-15 08:44 | W.PN.GI.CBS2 ---
Addendum entered and electronically signed by Jaja Conklin DO 06/15/24 12:13:
The patient was seen and examined by me independently in collaboration with the nurse practitioner.
Past medical history/social history/medications/allergies/family history reviewed.
Lab data and imaging data reviewed.
Repeat rectal exam at bedside this morning with burgundy colored stool, no melena. Hgb dropped to 11.4. Presentation is that of a slow bleed, suspicious for hemorrhoidal bleeding, however, stool color more consistent with a more proximal colonic
source After discussing with patient, he is agreeable to proceed with colonoscopy tomorrow as long as his INR is appropriate. He will remain on clears today, NPO PMN. Okay to start heparin gtt once INR <2, if deemed medically necessary.
Original Note:
Today's Communication / Plan
-
repeat rectal exam with burgundy stool with still small volume blood overnight
discussed option of observation vs proceed with colonoscopy in am
pt is agreeable to proceed-- he is aware INR may still be high and unable to proceed vs prep may clear blood
will give dulcolax now then start prep this afternoon
cont clear diet
trend INR
updated cardiology and hospitalist with plan
cont PPI BID
-if increased active GI bleeding/hemodynamically unstable GI bleeding, please obtain CTA
Assessment / Plan
-
Pt is a 84yo presents with hx afib on warfarin, mcgill's CAD with prior stenting and CABG in 2014, mitral valve repair 2014, GERD, hypertension, hyperlipidemia, BPH, iron deficiency anemia on oral iron, history of GI bleed status post mesenteric
coil embolization 2014 , suspected diverticular bleeding (Cscope x2 in 2019 with negative CTA) and recent admission in May with melena and hematuria. There was concern for irregular mass in bladder possible clot with also concern for UTI and
noted with INR 2.76 with coumadin use. CTA was neg for active GI bleed but also noted extensive diverticulosis and no further GI testing was completed that admission. He now presents with recurrent bleeding with black then bloody stools x1 then
note pink tinge in toilet. Last EGD 2022 with normal esophagus, irreg z line, patent Schatzki ring, HH, gastric polyps, granular gastric mucosa, normal duodenum. bx neg. Colonoscopy: March 2020, Dr. Castillo, adequate prep for purpose of bleeding,
enlarged prostate on exam, left-sided diverticulosis with blood throughout the entire colon but more red and fresh in the left colon. No source found after 2 L of lavage.
Problem list:
-burgundy stool
-hx hematuria/melena in May
-History of GI bleed with coil embolization 2014, suspected diverticular with extensive diverticulosis on prior imaging and colonoscopy in 2019
-Mcgill's esophagus on chronic PPI
-History of recurrent hematuria s/p cystoscopy and TURBT with nodular hyperplasia of bladder with follow up urology eval in May with hematuria
-History of A-fib on chronic anticoagulation with Coumadin
-chronic SHAKEEL on oral iron
Other pertinent medical history:
-CAD with history of CABG and mitral valve repair in 2014
-GERD
-HTN
-HLD
-BPH
Recommendations:
repeat rectal exam with burgundy stool with still small volume blood overnight
discussed option of observation vs proceed with colonoscopy in am
pt is agreeable to proceed-- he is aware INR may still be high and unable to proceed vs prep may clear blood
will give dulcolax now then start prep this afternoon
cont clear diet
trend INR
updated cardiology and hospitalist with plan
cont PPI BID
-if increased active GI bleeding/hemodynamically unstable GI bleeding, please obtain CTA
Subjective
Subjective
Date of Service: June 15, 2024
still with some small volume red and dark stools, on clear diet
Objective
Data Reviewed
Laboratory Data:
Laboratory Results
06/15/24 05:54
Laboratory Results
PT 31.0 Sec (11.4-14.6) H 06/14/24 12:33
INR 2.93 06/14/24 12:33
Total Bilirubin 0.7 mg/dl (0.2-1.3) 06/14/24 12:33
AST 26 U/L (17-59) 06/14/24 12:33
ALT 17 U/L (0-50) 06/14/24 12:33
Alkaline Phosphatase 94 U/L (38-126) 06/14/24 12:33
Vital Signs and I&O:
Vital Signs
Temp Pulse Resp BP Pulse Ox
97.8 F 86 16 151/85 97
06/15/24 07:56 06/15/24 08:24 06/15/24 07:56 06/15/24 08:24 06/15/24 07:56
I&O
06/14/24 06/15/24 06/16/24
06:59 06:59 06:59
Intake Total 1080 / 1080
Balance 1080 / 1080
Physical Exam
Physical Exam
HEENT: Anicteric and Moist mucous membranes
Cardiology: Normal Sinus Rhythm
Pulmonary: Clear
GI: Soft, Non Distended and Non Tender
Rectal: Other (burgundy stool with dark clot red on card )
Extremities: No Edema
Neuro: Non Focal
[2024-06-15] MEDS: DULCOLAX 10 MG PO (09:17)
[2024-06-15 09:54] LABS: Hematocrit 36.9 % (39.0-52.0); Hemoglobin 12.3 g/dL (13.0-18.0)
[2024-06-15 10:04] LABS: INR 2.46
--- NOTE | 2024-06-15 10:30 | CM ---
Reviewed the chart notes and spoke with the patient at the bedside. CM consult received for cost analysis of Eliquis 5m po bid. Call placed to patient's pharmacy [facility] unable to run cost. The pharmacist provided a phone number for [facility]
([phone]) which was no longer in services and patient's mbr # [id number]. Call placed to [phone] and was transferred to [facility] services. Cost analysis result: $388.45/month for 60 tabs of Eliquis 5mg bid. Ordering [employer] notified.
The patient resides alone in a two story home with two steps to enter. The patient has a cane in the home which he does not use. The patient has not been to a SNF in the past, but did have [facility] in the past. The patient's pharmacy of choice is
the [facility]. CM continues to be available to patient/family and is monitoring medical plan for needs at discharge.
Plan: Discharge to home when medically stable.
[2024-06-15 11:36] VITALS: BP 143/81
[2024-06-15] MEDS: NULYTELY SOLUTION 4 LITERS PO (13:56)
[2024-06-15 15:14] VITALS: BP 130/81
[2024-06-15 19:51] VITALS: BP 150/87
[2024-06-15 23:36] LABS: Hematocrit 32.8 % (39.0-52.0); Hemoglobin 11.6 g/dL (13.0-18.0)
[2024-06-15 23:39] VITALS: BP 147/86
[2024-06-16] VITALS (8 sets, daily range): BP systolic 18–168; BP diastolic 67–96; PULSE 100; O2SAT 98; BMI 23.4
[2024-06-16 06:56] LABS: Hematocrit 32.8 % (39.0-52.0); Hemoglobin 11.2 g/dL (13.0-18.0); Mean Corp Hgb Conc. 34.1 g/dL (33.0-37.0); Mean Corpuscular Hgb 29.6 pg (27.0-31.0); Mean Corpuscular Volume 86.8 fL (80.0-94.0); Mean Platelet Volume 10.4 fL (7.4-10.4); Platelet Count 309 10^3/uL (130-400); Red Blood Cell Count 3.78 10^6/uL (4.70-6.10); Red Cell Dist. Width 13.1 % (11.5-14.5); White Blood Cell Count 6.2 10^3/uL (4.8-10.8)
[2024-06-16 07:12] LABS: INR 2.92; PT 30.9 Sec (11.4-14.6)
[2024-06-16 07:25] LABS: Blood Urea Nitrogen 9 mg/dl (9-20); Calcium 9.2 mg/dl (8.4-10.2); Carbon Dioxide 24 mmol/L (22-30); Chloride 105 mmol/L (98-107); Estimated Creatinine Clearance 54 ml/min; Glucose 108 mg/dl (70-99); Potassium 3.9 mmol/L (3.5-5.1); Sodium 141 mmol/L (135-145); eGFR > 60.00
[2024-06-16] MEDS: COZAAR PO (08:40)
[2024-06-16] MEDS: PROSCAR PO (08:40)
[2024-06-16] MEDS: NSS (PRESERVATIVE FREE) 10 ML IV (08:41)
[2024-06-16] MEDS: ZETIA PO (08:41)
[2024-06-16] MEDS: PROTONIX IV 40 MG IV (08:41)
--- NOTE | 2024-06-16 12:11 | W.PN.UPDATE ---
Update Note
Progress Note Update
Spoke with daughter Marnie and patient
All ?s answered
TT sent to hospitalist
GI will sign off pls call with ?S
--- NOTE | 2024-06-16 13:23 | W.PN.HOSP.TC ---
Addendum entered and electronically signed by Brandon Arcos MD 06/16/24 16:21:
Yes, GI bleed is associated with/ enhanced by Coumadin.
Original Note:
Today's Communication/Plan
-
Discharge today
Assessment / Plan
Assessment / Plan
Physical Exam
General: Not in acute distress
HEENT: Normocephalic. Moist mucous membranes
Respiratory: Clear to Auscultation Bilaterally
Cardiac: S1/S2 and Irregular Rhythm
GI: Soft and Non Tender. Positive bowel sounds.
Musculoskeletal: No Cyanosis and No Edema
Skin: Warm and Dry
Neuro: Awake, Alert, Oriented and Nonfocal/grossly intact
Psych: Calm
Assessment/Plan
Diverticulosis in the sigmoid colon, in the descending colon and in the transverse colon, on Colonoscopy
Internal hemorrhoids, on Colonoscopy
GI Bleed Suspected Secondary to Diverticular Bleeding that has Stopped
-Consulted GI, appreciate evaluation and recommendations
-Can resume previous home usual diet
-Continue Protonix BID
-Resume Coumadin (on usual home dose) on discharge OR can start Eliquis 5 mg BID if able to afford it -- on 06/16/24, I discussed this over the phone with patient's daughter Nano
-Colonoscopy performed today, results are above
Permanent Atrial Fibrillation
-Resume Coumadin on discharge OR can start Eliquis 5 mg BID if able to afford it -- on 06/16/24, I discussed this over the phone with patient's daughter Nano
-Monitor INR at home if resuming Coumadin and not taking Eliquis
-[id number] score is 5
-Consult Cardiology further anticoagulation discussions: planning to switch to Eliquis, case management to check pricing
Essential Hypertension
-Continue losartan with hold parameters
Hyperlipidemia
-Continue Ezetimibe
BPH
-Continue dutasteride
Hx Coronary Artery Disease s/p CABG
DVT proph: SCDS
Code Status: Full Code
More than 30 minutes spent in discharge including
Final examination of the patient
Summarizing hospital stay
Instructions for continuing care to all relevant caregivers
Preparation of discharge records, prescriptions, and referral forms
Total time spent (in minutes): 45
Anticipated Discharge: Today
Subjective/Interval History
-
Date of Service: June 16, 2024
Patient was seen and examined. He denied any new symptoms or complaints.
Objective Data
-
Labs:
Laboratory Results
06/16/24
05:58
WBC 6.2
Hgb 11.2 L
Hct 32.8 L
Plt Count 309
PT 30.9 H
INR 2.92
Sodium 141
Potassium 3.9
Chloride 105
Carbon Dioxide 24
BUN 9
Creatinine 1.0
Glucose 108 H
Calcium 9.2
Vital Signs:
Vital Signs
Temp Pulse Resp BP Pulse Ox
97.8 F 89 16 147/87 99
06/16/24 12:42 06/16/24 12:42 06/16/24 12:42 06/16/24 12:42 06/16/24 12:42
I&O
06/15/24 06/16/24 06/17/24
06:59 06:59 06:59
Intake Total 1080 / 1080 2720 / 2720
Balance 1080 / 1080 2720 / 2720
--- NOTE | 2024-06-16 14:03 | CM ---
Reviewed the chart notes and spoke with the patient at the bedside. IMM signed and placed on chart. [employer] coupons provided to the patient. Patient was going to drive self home, but CM discussed that he had light sedation for colonoscopy today
and recommendation is not to operate a vehicle for 24 hours. Patient will contact his daughter to make arrangements for transportation. CM continues to be available to patient/family and is monitoring medical plan for needs at discharge.
Plan: Discharge to home with no needs.
--- NOTE | 2024-06-16 14:22 | PN.CDI ---
CDI
- -
CDI:
Physician Documentation Request
Admit Date: 06/14/24 14:14
Dear Doctor Isrrael,
Patient admitted with GI bleed.
06/15 PN, 'Coumadin on hold in setting of GI Bleed.'
Please clarify the likely relationship between these conditions:
Yes, GI bleed is associated with/ enhanced by Coumadin.
No, GI bleed is not associated with/ enhanced by Coumadin but it is due to ___. (Please specify)
Unable to determine
Use of terms such as suspected, likely, concern for, or probable (associated with a specific diagnosis that is being evaluated, monitored, or treated as if it exists) are acceptable and can be coded in the inpatient setting, when documented at the
time of discharge.
Thank you,
Kina VILLELA,RN,CCDS
CDI Specialist
Available via [facility] text
Please use your independent medical judgment in providing your response.
--- NOTE | 2024-06-16 16:21 | W.DCSUMMARY ---
Addendum entered and electronically signed by Brandon Arcos MD 06/18/24 17:00:
Correction: Date of Discharge: 06/16/24
Original Note:
Discharge Summary
Discharge Data
Date of Admission: 06/14/24
Date of Discharge: 06/18/24
-
Pending Results: No
Hospital Course
84 y/o male with a past medical history of gastrointestinal bleeding suspected diverticulosis status post mesenteric artery embolization, permanent atrial fibrillation on Coumadin, CAD status post CABG in 2014, mitral repair in 2014, hypertension,
GERD, hyperlipidemia, BPH, deficient anemia, hematuria with cystoscopy/ TURBT with last episode in April 2024 presented for bloody stool. Patient was placed on Protonix and Coumadin was held. Gastroenterology was consulted. INR was 2.93. CTA was
negative for active bleeding. Patient had a colonoscopy which showed, as per [employer] advanced operator maintainer's report, diverticulosis in the sigmoid colon, in the descending colon and in the transverse colon, and internal hemorrhoids, and it was suspected that
diverticular bleeding that had stopped.
Cardiology was also consulted and they recommended switching to Eliquis if possible. Eliquis coupon was given on discharge and prescription sent and patient's daughter was informed that patient can either take Coumadin or Eliquis for A-Fib, but
Eliquis is better, and they can pick Eliquis up from the pharmacy if affordable and take Eliquis.
Discharge Plan
-
Patient Disposition: Home (Routine Discharge)
Discharge Diagnosis/Procedures: Diverticulosis in the sigmoid colon, in the descending colon and in the transverse colon, on Colonoscopy
Internal hemorrhoids, on Colonoscopy
Gastrointestinal Bleeding Suspected Secondary to Diverticular Bleeding that has Stopped
Permanent Atrial Fibrillation
Essential Hypertension
Hyperlipidemia
Benign Prostatic Hyperplasia
History of Coronary Artery Disease status post CABG surgery
Condition: Good
Diet: As tolerated, Low Fat and Low Cholesterol
Activity: As tolerated
Activity Restrictions/Additional Instructions:
Do NOT take both Eliquis and Coumadin: Eliquis has been sent to your pharmacy, if you can afford the prescription of Eliquis, take the Eliquis INSTEAD OF COUMADIN (in such a case you would STOP Coumadin if you start taking Eliquis).
If however you cannot take Eliquis or afford the Eliquis, then continue taking Coumadin, in such as a case, you should have your INR recheck latest by Wednesday06/19/24.
Referrals:
Nora Mendez MD [Family Provider] - in 4 days
Sabas Lofton MD [Active] - in three to four days
Additional Discharge Medication Instructions: Do NOT take both Eliquis and Coumadin: Eliquis has been sent to your pharmacy, if you can afford the prescription of Eliquis, take the Eliquis INSTEAD OF COUMADIN (in such a case you would STOP Coumadin
if you start taking Eliquis).
If however you cannot take Eliquis or afford the Eliquis, then continue taking Coumadin, in such as a case, you should have your INR recheck latest by Wednesday06/19/24.
Prescriptions:
New
Eliquis 5 mg tablet
5 mg PO BID Qty: 60 1RF
Continued
dutasteride 0.5 MG capsule
0.5 mg PO DAILY
ferrous sulfate [FeroSul] 325 MG tablet
650 mg PO DAILY
Fiber Gummies 2 GM tablet,chewable
4 gm PO DAILY
losartan 100 mg Tablet
100 mg PO DAILY
ezetimibe 10 mg Tablet
10 mg PO DAILY
therapeutic multivitamin Tablet
2 tab PO DAILY
pantoprazole 40 MG tablet,delayed release (DR/EC)
40 mg PO DAILY
warfarin 4 mg Tablet
4 mg PO TUTH@1900
warfarin 2 mg tablet
2 mg PO SuMoWeFrSa@1900
Discharge Orders:
Discharge Patient (As Directed); Ordered 06/16/24
Ordered By: Brandon Arcos
Discharge Date and Time
Discharge Date/Time: 06/16/24 17:42
Print Language: [place]
--- NOTE | 2024-06-16 16:38 | W.PN.CD ---
Today's Communication / Plan
-
OK for home
Eliquis makes sense (overall likely the lowest GI bleed rate of the blood thinners) second choice is warfarin. Pradaxa and Xarelto are no preferred.
If more bleeding that cannot be corrected we will consider Watchman and discontinue anticoagulation
We will sign off
Impression / Plan
-
GI bleed
- GI results noted
- No transfusions
Permanent AFIB:
-rate controlled off medicines.
-[id number] score is 5 for HTN, age, CAD, and DM. He is typically on warfarin, which is held for GIB.
-would prefer to resume Eliquis when able, cm c/s placed for pricing
CAD s/p CABG:
-stable without CP
MR s/p MV repair:
-stable by echo
HTN:
-continue losartan and follow
Subjective:
No Cp or dyspnea
Physical Exam
Vital Signs/Labs
Vital Signs
Temp Pulse Resp BP Pulse Ox
98.0 F 96 16 138/78 100
06/16/24 15:30 06/16/24 15:30 06/16/24 15:30 06/16/24 15:30 06/16/24 15:30
06/15/24 06/16/24 06/17/24
06:59 06:59 06:59
Actual Weight 71.577 kg 71.894 kg
06/16/24 05:58
06/16/24 05:58
PT 30.9 Sec (11.4-14.6) H 06/16/24 05:58
INR 2.92 06/16/24 05:58
Physical Exam
Constitutional: No acute distress
Cardiovascular: Rhythm/rate is irregular and S1S2 is normal
Respiratory: Respiratory effort normal and Lungs clear to auscul.
GI: Soft and Distention absent
Data Reviewed
-
Date of Service: June 16, 2024
== END 2024-06-16 17:42 | disposition home or self-care (01) | DRG 813 ==
LOC: 2 NORTH 14:14
PROVIDERS: Internal Medicine Gastroenterology; Nurse Practitioner Adult Health; Physician Assistant; Physician Assistant Medical; ADMITTING PHYSICIAN Hospitalist; ATTENDING PHYSICIAN Hospitalist; CONSULT PHYSICIAN Internal Medicine Cardiovascular Disease; EMERGENCY PHYSICIAN Student in an Organized Health Care Education/Training Program; FAMILY PHYSICIAN Student in an Organized Health Care Education/Training Program; OTHER PHYSICIAN Internal Medicine
PROC: 0DJD8ZZ Inspection of Lower Intestinal Tract, Via Natural or Artificial Opening Endoscopic (ICD-10-PCS; 2024-06-16)
DX: D68.32 Hemorrhagic disorder due to extrinsic circulating anticoagulants (principal); K57.31 Diverticulosis of large intestine without perforation or abscess with bleeding; I48.21 Permanent atrial fibrillation; I11.0 Hypertensive heart disease with heart failure; I50.9 Heart failure, unspecified; E11.9 Type 2 diabetes mellitus without complications; D50.9 Iron deficiency anemia, unspecified; E78.00 Pure hypercholesterolemia, unspecified; K21.9 Gastro-esophageal reflux disease without esophagitis; I25.10 Atherosclerotic heart disease of native coronary artery without angina pectoris; Z95.1 Presence of aortocoronary bypass graft; Z95.5 Presence of coronary angioplasty implant and graft; K64.0 First degree hemorrhoids; K80.20 Calculus of gallbladder without cholecystitis without obstruction; N40.0 Benign prostatic hyperplasia without lower urinary tract symptoms; T45.515A Adverse effect of anticoagulants, initial encounter; Z79.01 Long term (current) use of anticoagulants; Z79.899 Other long term (current) drug therapy; Z87.891 Personal history of nicotine dependence; Z87.19 Personal history of other diseases of the digestive system; Z88.0 Allergy status to penicillin
CPT/HCPCS: 80048; 80053; 85014; 85018; 85025; 85027; 85610; 86850; 86900; 86901; 93005; 96360; 97162; 99284

== ENCOUNTER → 2024-07-03 12:50 | Outpatient (REF) | payer MEDICARE, BC, SELFPAY | LOC: RAD 12:50 | PROVIDERS: ATTENDING PHYSICIAN Internal Medicine; FAMILY PHYSICIAN Student in an Organized Health Care Education/Training Program | DX: E11.42 Type 2 diabetes mellitus with diabetic polyneuropathy (principal); H53.19 Other subjective visual disturbances; G45.9 Transient cerebral ischemic attack, unspecified | CPT/HCPCS: 93880 ==

== ENCOUNTER → 2024-07-13 14:48 | Outpatient (REF) | payer MEDICARE, BC, SELFPAY | LOC: RAD 14:48 | PROVIDERS: ATTENDING PHYSICIAN Surgery; FAMILY PHYSICIAN Student in an Organized Health Care Education/Training Program | DX: N40.0 Benign prostatic hyperplasia without lower urinary tract symptoms (principal) | CPT/HCPCS: 76770 ==

== ENCOUNTER → 2024-08-29 16:13 | Outpatient (REF) | payer MEDICARE, BC, SELFPAY | LOC: RCS 16:13 | PROVIDERS: ATTENDING PHYSICIAN Internal Medicine Cardiovascular Disease; FAMILY PHYSICIAN Student in an Organized Health Care Education/Training Program | DX: I48.21 Permanent atrial fibrillation (principal); Z98.890 Other specified postprocedural states | CPT/HCPCS: 93306 ==

== ENCOUNTER → 2024-09-04 13:42 | Outpatient (REF) | payer MEDICARE, BC, SELFPAY | LOC: RAD 13:42 | PROVIDERS: ATTENDING PHYSICIAN Surgery Vascular Surgery; FAMILY PHYSICIAN Student in an Organized Health Care Education/Training Program | DX: K55.1 Chronic vascular disorders of intestine (principal) | CPT/HCPCS: 74174; Q9967 ==

== ENCOUNTER → 2025-01-02 10:06 | Outpatient (REF) | payer MEDICARE, BC, SELFPAY | LOC: RAD 10:06 | PROVIDERS: ATTENDING PHYSICIAN Physician Assistant; FAMILY PHYSICIAN Student in an Organized Health Care Education/Training Program | DX: R13.10 Dysphagia, unspecified (principal) | CPT/HCPCS: 74246 ==

== ENCOUNTER → 2025-02-14 09:29 | Outpatient (REF) | payer MEDICARE, BC, SELFPAY | LOC: RST 09:29 | PROVIDERS: ATTENDING PHYSICIAN Internal Medicine Gastroenterology; FAMILY PHYSICIAN Student in an Organized Health Care Education/Training Program | DX: R13.12 Dysphagia, oropharyngeal phase (principal) | CPT/HCPCS: 74230; 92611 ==

== ENCOUNTER → 2025-07-19 12:53 | Outpatient (REF) | payer MEDICARE, BC, SELFPAY | LOC: RCS 12:53 | PROVIDERS: ATTENDING PHYSICIAN Internal Medicine Cardiovascular Disease; FAMILY PHYSICIAN Student in an Organized Health Care Education/Training Program | DX: I48.21 Permanent atrial fibrillation (principal); Z98.890 Other specified postprocedural states | CPT/HCPCS: 93306 ==

== ENCOUNTER → 2025-08-16 12:56 | Outpatient (REF) | payer MEDICARE, BC, SELFPAY | LOC: RAD 12:56 | PROVIDERS: ATTENDING PHYSICIAN Surgery Vascular Surgery; FAMILY PHYSICIAN Student in an Organized Health Care Education/Training Program | DX: K55.1 Chronic vascular disorders of intestine (principal) | CPT/HCPCS: 74174; Q9967 ==